=== PATIENT | male | born 1935 | race Caucasian/White ===

== ENCOUNTER 2017-05-18 08:52 | Inpatient (IN) | payer MEDICARE, MEDICAID ==
[~2017-05-18] VITALS: Ht 182.9 cm; Wt 83.0 kg
[2017-05-18] VITALS (41 sets, daily range): BP systolic 46–155; BP diastolic 31–90
[~2017-05-18 08:52] MED LIST: BICA50TA2 GT; CEROVITE GT; CHOL400T15 GT; DOCU-150 GT; HALO100A IM; HALO5TAB GT; LACT10SO6 PO; LEVOCARNITINE GT; LORA1TAB PO; MILK OF MAGNESIA GT; OMEP20CA10 GT; QUET100T GT; QUET25TA PO; RIVA10TA PO; RIVA20TA GT; SOTA80TA GT; TAMS-11 GT; VALPROIC ACID GT
[2017-05-18] MEDS ORDERED: SODIUM CHLORIDE 0.9% 1000ML BAG (SEPSIS BOLUS) IV ONE (09:15)
[2017-05-18] MEDS ORDERED: PIPERACILLIN/TAZ 3.375G PREMIX 50 ML IV ONE (09:30)
[2017-05-18] MEDS ORDERED: LEVOFLOXACIN 500MG PREMIX 100 ML IV ONE (09:30)
[2017-05-18] MEDS ORDERED: ACETAMINOPHEN 650MG SUPP PR ONE (09:30)
[2017-05-18 09:44] LABS: BG BASE EXCESS 6.2 mmol/L (-2.0-2.0); BG CARBOXYHEMOGLOBIN 0.7 % (0.5-1.5); BG DEOXYHEMOGLOBIN 1.7 % (0.0-5.0); BG FRACTION INSPIRED OXYGEN 36ER; BG HCO3 ACT 30.9 mmol/L (22.0-26.0); BG OXYGEN SATURATION 98.3 % (92.0-98.5); BG OXYHEMOGLOBIN 97.6 % (94.0-97.0); BG PCO2 45.2 mmHg (35.0-45.0); BG PH 7.453 (7.350-7.450); BG PO2 110.8 mmHg (75.0-100.0); BG SAMPLE SITE RIGHT RADIAL; BG TOTAL HEMOGLOBIN 11.8 g/dL (12.0-18.0); BG VENT MODE NASAL CANNULA
[2017-05-18 09:49] LABS: BASOPHILS % 0.6 % (0.0-2.0); EOSINOPHILS % 0.6 % (0.0-5.0); HEMATOCRIT. 32.8 % (42.0-52.0); HEMOGLOBIN. 10.6 g/dL (14.0-18.0); LYMPHOCYTES % 11.8 % (20.0-50.0); MEAN CORPUSCULAR HEMOGLOBIN 30.2 pg (28.0-32.0); MEAN PLATELET VOLUME 8.2 fl (7.4-10.4); MONOCYTES % 7.7 % (2.0-8.0); NEUTROPHILS % 79.3 % (40.0-76.0); PLATELET 210 x1000/uL (130-400); RED BLOOD CELL COUNT 3.53 mill/uL (4.7-6.1); RED CELL DISTRIBUTION WIDTH 18.3 % (11.6-14.6)
[2017-05-18 09:58] LABS: INR 1.1; PARTIAL THROMBOPLASTIN TIME 24.4 sec (23.4-31.0); PROTHROMBIN TIME 11.3 sec (9.4-11.6)
[2017-05-18 10:04] LABS: CARBON DIOXIDE 31 mEq/L (21-32); CHLORIDE 110 mEq/L (98-107); TROPONIN I 0.23 ng/mL (0.00-0.04)
[2017-05-18 10:19] LABS: CLARITY URINE CLOUDY (CLEAR); COLOR URINE YELLOW (YELLOW); GLUCOSE URINE NEGATIVE (NEGATIVE); KETONES URINE NEGATIVE (NEGATIVE); LEUKOCYTE ESTERASE URINE 1+ (NEGATIVE); NITRITE URINE NEGATIVE (NEGATIVE); OCCULT BLOOD URINE 2+ (NEGATIVE); PROTEIN URINE 2+ (NEGATIVE); SPECIFIC GRAVITY URINE 1.021 (1.005-1.030)
[2017-05-18] MEDS ORDERED: VANCOMYCIN 1 G PREMIX 200 ML IV SCH (12:15)
[2017-05-18] MEDS ORDERED: ONDANSETRON HCL 4MG/2ML VIAL IV PRN (12:15)
[2017-05-18] MEDS ORDERED: DEXT 5%/0.45% NACL 1000ML 1,000 ML IV SCH (12:15)
[2017-05-18] MEDS ORDERED: VANCOMYCIN 1,750 MG in DEXT 5% WATER 250 ML IV NR (13:30)
[2017-05-18] MEDS: SODIUM CHLORIDE 0.9% 1,000 ML IV SCH (15:23)
[2017-05-18] MEDS: PIPERACILLIN/TAZ 3.375G PREMIX 50 ML IV SCH (17:25)
[2017-05-18] MEDS: NOREPINEPHRINE 16 MG in DEXT 5% WATER 234 ML IV PRN (19:52)
[2017-05-18] MEDS: IPRATROPIUM/ALBUTEROL 0.5-3(2.5)MG/3ML NEB INH SCH (20:06)
[2017-05-18 20:18] LABS: BG CARBOXYHEMOGLOBIN 0.4 % (0.5-1.5); BG DEOXYHEMOGLOBIN 0.5 % (0.0-5.0); BG FRACTION INSPIRED OXYGEN 100; BG HCO3 ACT 25.8 mmol/L (22.0-26.0); BG METHEMOGLOBIN 0.4 % (0.0-1.5); BG OXYGEN SATURATION 99.5 % (92.0-98.5); BG OXYHEMOGLOBIN 98.7 % (94.0-97.0); BG PH 7.407 (7.350-7.450); BG PO2 304.5 mmHg (75.0-100.0); BG SAMPLE SITE RIGHT RADIAL; BG TIDAL VOLUME(mL) 650 mL; BG TOTAL HEMOGLOBIN 12.6 g/dL (12.0-18.0); BG VENT MODE VENT - A/C; BG VENT RATE 14 set
[2017-05-18] MEDS: DILTIAZEM HCL 125 MG in DEXT 5% WATER 100 ML IV PRN (21:06)
[2017-05-18] MEDS: PHENYLEPHRINE 40 MG in DEXT 5% WATER 246 ML IV PRN (21:07)
[2017-05-18] MEDS: ACETAMINOPHEN 325MG TABLET PO PRN (21:14)
[2017-05-18] MEDS ORDERED: DIGOXIN 500MCG/2ML AMP IV NR (23:14)
[2017-05-18] MEDS: ALBUMIN HUMAN 25GM/100ML (25%) IV NR (23:35)
[2017-05-19] VITALS (92 sets, daily range): BP systolic 57–145; BP diastolic 28–95
[2017-05-19] MEDS: IPRATROPIUM/ALBUTEROL 0.5-3(2.5)MG/3ML NEB INH SCH ×7 (00:24→23:43)
[2017-05-19 00:30] LABS: HEMATOCRIT 33.3 % (42.0-52.0); HEMOGLOBIN 10.6 g/dL (14.0-18.0)
[2017-05-19] MEDS: ALBUMIN HUMAN 25GM/100ML (25%) IV NR (00:47)
[2017-05-19] MEDS: PHENYLEPHRINE 40 MG in DEXT 5% WATER 246 ML IV PRN ×3 (00:47→06:48)
[2017-05-19] MEDS: PIPERACILLIN/TAZ 3.375G PREMIX 50 ML IV SCH ×3 (02:02→17:17)
[2017-05-19] MEDS: VANCOMYCIN 1 G PREMIX 200 ML IV SCH ×2 (02:03→15:18)
[2017-05-19] MEDS: DILTIAZEM HCL 125 MG in DEXT 5% WATER 100 ML IV PRN (03:03)
[2017-05-19] MEDS: ACETAMINOPHEN 325MG TABLET PO PRN ×2 (05:06→10:26)
[2017-05-19] MEDS: METHYLPREDNISOLONE SOD SUCC 40 MG/ML VIAL IV SCH ×2 (05:06→17:18)
[2017-05-19 05:16] LABS: HEMATOCRIT. 28.6 % (42.0-52.0); HEMOGLOBIN. 9.3 g/dL (14.0-18.0); MEAN CORPUSCULAR HEMOGLOBIN 30.4 pg (28.0-32.0); MEAN CORPUSCULAR VOLUME 93.6 fL (80.0-94.0); MEAN PLATELET VOLUME 8.6 fl (7.4-10.4); PLATELET 190 x1000/uL (130-400); RED BLOOD CELL COUNT 3.06 mill/uL (4.7-6.1)
[2017-05-19 05:39] LABS: CARBON DIOXIDE 23 mEq/L (21-32); CHLORIDE 114 mEq/L (98-107)
[2017-05-19 05:52] LABS: CREATINE KINASE 133 IU/L (39-308)
[2017-05-19 05:59] LABS: CREATINE KINASE MB FRACTION 2.1 ng/mL (0.5-3.6)
[2017-05-19] MEDS: NOREPINEPHRINE 16 MG in DEXT 5% WATER 234 ML IV PRN (06:48)
[2017-05-19 09:15] LABS: BG BASE EXCESS -1.8 mmol/L (-2.0-2.0); BG DEOXYHEMOGLOBIN 0.6 % (0.0-5.0); BG FRACTION INSPIRED OXYGEN 80; BG HCO3 ACT 21.5 mmol/L (22.0-26.0); BG METHEMOGLOBIN 0.3 % (0.0-1.5); BG OXYGEN SATURATION 99.4 % (92.0-98.5); BG OXYHEMOGLOBIN 99.1 % (94.0-97.0); BG PCO2 31.5 mmHg (35.0-45.0); BG PH 7.452 (7.350-7.450); BG PO2 224.5 mmHg (75.0-100.0); BG SAMPLE SITE RIGHT RADIAL; BG TIDAL VOLUME(mL) 650 mL; BG TOTAL HEMOGLOBIN 10.2 g/dL (12.0-18.0); BG VENT MODE VENT - A/C; BG VENT RATE 14 set
[2017-05-19] MEDS: SODIUM CHLORIDE 0.9% 1,000 ML IV SCH ×2 (09:50→21:50)
[2017-05-19 11:11] LABS: PLATELET ESTIMATE NORMAL
[2017-05-19] MEDS: PHENYLEPHRINE 80 MG in DEXT 5% WATER 492 ML IV PRN ×2 (11:11→17:24)
[2017-05-19] MEDS: ENOXAPARIN 100MG/ML SYR SUBCUT SCH ×2 (12:48→23:47)
[2017-05-19] MEDS ORDERED: LIDOCAINE HCL 1% 20ML VIAL (Pyxis) INJ ONE (14:38)
[2017-05-19] MEDS ORDERED: SODIUM BICARBONATE 4.2% 5 MEQ/10 ML DISP.SYRIN IV ONE (14:38)
[2017-05-19 20:44] LABS: CREATINE KINASE MB FRACTION 4.5 ng/mL (0.5-3.6)
[2017-05-19 20:50] LABS: TROPONIN I 0.5 ng/mL (0.00-0.04)
[2017-05-19] MEDS ORDERED: SUCCINYLCHOLINE CHLORIDE 200MG/10ML VIAL IV ONE (22:00)
[2017-05-19] MEDS ORDERED: ETOMIDATE 2MG/ML 10ML VIAL IV ONE (22:00)
[2017-05-20] VITALS (85 sets, daily range): BP systolic 92–148; BP diastolic 27–107
[2017-05-20] MEDS: IPRATROPIUM/ALBUTEROL 0.5-3(2.5)MG/3ML NEB INH SCH ×6 (01:57→20:12)
[2017-05-20] MEDS: PIPERACILLIN/TAZ 3.375G PREMIX 50 ML IV SCH ×3 (02:02→18:07)
[2017-05-20] MEDS: VANCOMYCIN 1 G PREMIX 200 ML IV SCH (02:02)
[2017-05-20] MEDS: PHENYLEPHRINE 80 MG in DEXT 5% WATER 492 ML IV PRN (03:13)
[2017-05-20 05:46] LABS: HEMATOCRIT. 28.1 % (42.0-52.0); HEMOGLOBIN. 9.2 g/dL (14.0-18.0); MEAN CORPUSCULAR HEMOGLOBIN 30.5 pg (28.0-32.0); MEAN CORPUSCULAR VOLUME 92.9 fL (80.0-94.0); MEAN PLATELET VOLUME 9.4 fl (7.4-10.4); PLATELET 178 x1000/uL (130-400); RED BLOOD CELL COUNT 3.02 mill/uL (4.7-6.1); RED CELL DISTRIBUTION WIDTH 18.2 % (11.6-14.6)
[2017-05-20] MEDS: METHYLPREDNISOLONE SOD SUCC 40 MG/ML VIAL IV SCH ×2 (06:27→18:07)
[2017-05-20 06:46] LABS: CARBON DIOXIDE 23 mEq/L (21-32); CHLORIDE 113 mEq/L (98-107)
[2017-05-20 07:43] LABS: PLATELET ESTIMATE NORMAL
[2017-05-20] MEDS: POTASSIUM CHLORIDE 20MEQ/PACKET NG SCH ×2 (09:40→13:48)
[2017-05-20] MEDS: ACETAMINOPHEN 325MG TABLET PO PRN (09:40)
[2017-05-20 09:49] LABS: BG BASE EXCESS -3.5 mmol/L (-2.0-2.0); BG CARBOXYHEMOGLOBIN 0.1 % (0.5-1.5); BG FRACTION INSPIRED OXYGEN 30; BG HCO3 ACT 20.3 mmol/L (22.0-26.0); BG METHEMOGLOBIN 0.1 % (0.0-1.5); BG OXYHEMOGLOBIN 95.8 % (94.0-97.0); BG PCO2 31.8 mmHg (35.0-45.0); BG PH 7.423 (7.350-7.450); BG SAMPLE SITE RIGHT RADIAL; BG TIDAL VOLUME(mL) 650 mL; BG TOTAL HEMOGLOBIN 9.2 g/dL (12.0-18.0); BG VENT MODE VENT - A/C; BG VENT RATE 14 set
[2017-05-20] MEDS: SODIUM CHLORIDE 0.9% 1,000 ML IV SCH ×2 (11:47→13:48)
[2017-05-20] MEDS: MIDODRINE HCL 5MG TABLET PO SCH ×2 (13:48→18:08)
[2017-05-20] MEDS: ENOXAPARIN 100MG/ML SYR SUBCUT SCH ×2 (13:49→23:13)
[2017-05-20] MEDS: FUROSEMIDE 40MG/4ML VIAL IVP SCH (14:50)
[2017-05-20] MEDS: VANCOMYCIN 750 MG PREMIX 150 ML IV SCH (16:02)
[2017-05-20 16:35] LABS: CHLORIDE 116 mEq/L (98-107)
[2017-05-20 16:42] LABS: CARBON DIOXIDE 22 mEq/L (21-32)
[2017-05-21] VITALS (77 sets, daily range): BP systolic 56–151; BP diastolic 28–105
[2017-05-21] MEDS: IPRATROPIUM/ALBUTEROL 0.5-3(2.5)MG/3ML NEB INH SCH ×6 (00:16→20:25)
[2017-05-21] MEDS: PIPERACILLIN/TAZ 3.375G PREMIX 50 ML IV SCH ×3 (01:49→17:29)
[2017-05-21] MEDS: VANCOMYCIN 750 MG PREMIX 150 ML IV SCH ×2 (02:33→15:40)
[2017-05-21] MEDS: SODIUM CHLORIDE 0.9% 1,000 ML IV SCH ×2 (03:19→12:13)
[2017-05-21] MEDS: METHYLPREDNISOLONE SOD SUCC 40 MG/ML VIAL IV SCH ×2 (05:51→17:29)
[2017-05-21 06:11] LABS: BASOPHILS % 0.2 % (0.0-2.0); EOSINOPHILS % 0.3 % (0.0-5.0); HEMATOCRIT. 25.9 % (42.0-52.0); HEMOGLOBIN. 8.6 g/dL (14.0-18.0); LYMPHOCYTES % 7.3 % (20.0-50.0); MEAN CORPUSCULAR HEMOGLOBIN 30.9 pg (28.0-32.0); MEAN CORPUSCULAR VOLUME 92.8 fL (80.0-94.0); MEAN PLATELET VOLUME 9.7 fl (7.4-10.4); MONOCYTES % 3.8 % (2.0-8.0); NEUTROPHILS % 88.4 % (40.0-76.0); PLATELET 161 x1000/uL (130-400); RED BLOOD CELL COUNT 2.79 mill/uL (4.7-6.1); RED CELL DISTRIBUTION WIDTH 18.4 % (11.6-14.6)
[2017-05-21 06:38] LABS: CARBON DIOXIDE 23 mEq/L (21-32); CHLORIDE 115 mEq/L (98-107)
[2017-05-21 07:10] LABS: BG BASE EXCESS -1.6 mmol/L (-2.0-2.0); BG CARBOXYHEMOGLOBIN 0.7 % (0.5-1.5); BG DEOXYHEMOGLOBIN 4.2 % (0.0-5.0); BG HCO3 ACT 21.8 mmol/L (22.0-26.0); BG METHEMOGLOBIN 0.3 % (0.0-1.5); BG OXYGEN SATURATION 95.8 % (92.0-98.5); BG OXYHEMOGLOBIN 94.8 % (94.0-97.0); BG PCO2 32.4 mmHg (35.0-45.0); BG PH 7.446 (7.350-7.450); BG PO2 78.2 mmHg (75.0-100.0); BG SAMPLE SITE RIGHT BRACHIAL; BG TIDAL VOLUME(mL) 650 mL; BG TOTAL HEMOGLOBIN 11.6 g/dL (12.0-18.0); BG VENT MODE VENT - A/C; BG VENT RATE 14 set
[2017-05-21] MEDS: POTASSIUM CHLORIDE 20MEQ/PACKET GT SCH ×2 (09:29→12:10)
[2017-05-21] MEDS: FUROSEMIDE 40MG/4ML VIAL IVP SCH (09:31)
[2017-05-21] MEDS: MIDODRINE HCL 5MG TABLET PO SCH ×3 (09:31→17:29)
[2017-05-21] MEDS: ACETAMINOPHEN 325MG TABLET PO PRN (09:32)
[2017-05-21] MEDS: ENOXAPARIN 100MG/ML SYR SUBCUT SCH (12:11)
[2017-05-21 15:40] LABS: BG BASE EXCESS -0.7 mmol/L (-2.0-2.0); BG CARBOXYHEMOGLOBIN 0.3 % (0.5-1.5); BG CPAP (cmH2O) 0 cm(H2O); BG DEOXYHEMOGLOBIN 2.2 % (0.0-5.0); BG HCO3 ACT 22.8 mmol/L (22.0-26.0); BG METHEMOGLOBIN 0.1 % (0.0-1.5); BG OXYGEN SATURATION 97.8 % (92.0-98.5); BG OXYHEMOGLOBIN 97.4 % (94.0-97.0); BG PCO2 33.4 mmHg (35.0-45.0); BG PH 7.452 (7.350-7.450); BG PO2 106.6 mmHg (75.0-100.0); BG SAMPLE SITE RIGHT BRACHIAL; BG TOTAL HEMOGLOBIN 10.1 g/dL (12.0-18.0); BG VENT MODE VENT - CPAP
[2017-05-22] VITALS (72 sets, daily range): BP systolic 100–149; BP diastolic 57–104
[2017-05-22] MEDS: IPRATROPIUM/ALBUTEROL 0.5-3(2.5)MG/3ML NEB INH SCH ×6 (00:29→20:01)
[2017-05-22] MEDS: ENOXAPARIN 100MG/ML SYR SUBCUT SCH ×3 (00:52→23:39)
[2017-05-22] MEDS: PIPERACILLIN/TAZ 3.375G PREMIX 50 ML IV SCH ×3 (02:56→17:01)
[2017-05-22] MEDS: VANCOMYCIN 750 MG PREMIX 150 ML IV SCH ×2 (03:58→14:56)
[2017-05-22] MEDS: METHYLPREDNISOLONE SOD SUCC 40 MG/ML VIAL IV SCH ×2 (05:44→17:01)
[2017-05-22 06:01] LABS: EOSINOPHILS % 0.2 % (0.0-5.0); HEMATOCRIT. 25.9 % (42.0-52.0); HEMOGLOBIN. 8.5 g/dL (14.0-18.0); LYMPHOCYTES % 8.1 % (20.0-50.0); MEAN CORPUSCULAR HEMOGLOBIN 30.4 pg (28.0-32.0); MEAN CORPUSCULAR VOLUME 92.4 fL (80.0-94.0); MEAN PLATELET VOLUME 9.2 fl (7.4-10.4); MONOCYTES % 5.1 % (2.0-8.0); NEUTROPHILS % 86.6 % (40.0-76.0); PLATELET 172 x1000/uL (130-400); RED CELL DISTRIBUTION WIDTH 18.1 % (11.6-14.6)
[2017-05-22 06:48] LABS: CARBON DIOXIDE 27 mEq/L (21-32); CHLORIDE 116 mEq/L (98-107)
[2017-05-22] MEDS: MIDODRINE HCL 5MG TABLET PO SCH ×3 (08:26→17:01)
[2017-05-22] MEDS: FUROSEMIDE 40MG/4ML VIAL IVP SCH (08:26)
[2017-05-22] MEDS: POTASSIUM CHLORIDE 20MEQ/PACKET GT SCH (08:27)
[2017-05-22 09:28] LABS: BG BASE EXCESS 4.5 mmol/L (-2.0-2.0); BG CARBOXYHEMOGLOBIN 0.3 % (0.5-1.5); BG DEOXYHEMOGLOBIN 2.8 % (0.0-5.0); BG FRACTION INSPIRED OXYGEN 30; BG HCO3 ACT 27.7 mmol/L (22.0-26.0); BG METHEMOGLOBIN 0.2 % (0.0-1.5); BG OXYGEN SATURATION 97.2 % (92.0-98.5); BG OXYHEMOGLOBIN 96.7 % (94.0-97.0); BG PCO2 35.9 mmHg (35.0-45.0); BG PH 7.505 (7.350-7.450); BG PO2 87.7 mmHg (75.0-100.0); BG PRESSURE SUPPORT 10; BG SAMPLE SITE RIGHT BRACHIAL; BG TOTAL HEMOGLOBIN 10.2 g/dL (12.0-18.0); BG VENT MODE VENT - CPAP
[2017-05-22] MEDS: SODIUM CHLORIDE 0.9% 1,000 ML IV SCH (15:00)
[2017-05-22] MEDS: ACETYLCYSTEINE 200MG/ML 20% VIAL 4ML INH SCH (20:00)
[2017-05-23] VITALS (59 sets, daily range): BP systolic 109–144; BP diastolic 57–84
[2017-05-23] MEDS: IPRATROPIUM/ALBUTEROL 0.5-3(2.5)MG/3ML NEB INH SCH ×6 (00:13→20:22)
[2017-05-23] MEDS: ACETYLCYSTEINE 200MG/ML 20% VIAL 4ML INH SCH ×6 (00:13→20:23)
[2017-05-23] MEDS: PIPERACILLIN/TAZ 3.375G PREMIX 50 ML IV SCH ×3 (02:43→17:30)
[2017-05-23] MEDS: METHYLPREDNISOLONE SOD SUCC 40 MG/ML VIAL IV SCH ×2 (05:21→17:30)
[2017-05-23] MEDS: VANCOMYCIN 750 MG PREMIX 150 ML IV SCH ×2 (05:21→23:24)
[2017-05-23] MEDS: FUROSEMIDE 40MG/4ML VIAL IVP SCH (08:48)
[2017-05-23] MEDS: MIDODRINE HCL 5MG TABLET PO SCH ×3 (09:00→17:31)
[2017-05-23] MEDS ORDERED: SODIUM BICARBONATE 4% (2.4MEQ) 5ML VIAL IV ONE (10:46)
[2017-05-23] MEDS ORDERED: LIDOCAINE HCL 1% 20ML VIAL (Pyxis) INJ ONE (10:46)
[2017-05-23] MEDS ORDERED: IOHEXOL-300 50 ML BOTTLE IV ONE (10:48)
[2017-05-23] MEDS ORDERED: IOHEXOL-300 100 ML BOTTLE ONE (10:48)
[2017-05-23] MEDS ORDERED: FENTANYL CITRATE/PF 50MCG/ML 2ML VIAL ONE (11:12)
[2017-05-23] MEDS ORDERED: DIPHENHYDRAMINE 50MG/ML VIAL ONE (11:13)
[2017-05-23] MEDS: POTASSIUM CHLORIDE 20MEQ/PACKET GT SCH (12:01)
[2017-05-23] MEDS: ENOXAPARIN 100MG/ML SYR SUBCUT SCH ×2 (12:02→23:33)
[2017-05-23 12:20] LABS: BASOPHILS % 0.2 % (0.0-2.0); HEMATOCRIT. 29.6 % (42.0-52.0); HEMOGLOBIN. 9.9 g/dL (14.0-18.0); LYMPHOCYTES % 8.6 % (20.0-50.0); MEAN CORPUSCULAR HEMOGLOBIN 30.6 pg (28.0-32.0); MEAN CORPUSCULAR VOLUME 91.2 fL (80.0-94.0); MEAN PLATELET VOLUME 8.5 fl (7.4-10.4); MONOCYTES % 5.3 % (2.0-8.0); NEUTROPHILS % 85.9 % (40.0-76.0); PLATELET 212 x1000/uL (130-400); RED BLOOD CELL COUNT 3.25 mill/uL (4.7-6.1); RED CELL DISTRIBUTION WIDTH 18.6 % (11.6-14.6)
[2017-05-23 12:32] LABS: CARBON DIOXIDE 29 mEq/L (21-32); CHLORIDE 114 mEq/L (98-107)
[2017-05-23] MEDS: SODIUM CHLORIDE 0.9% 1,000 ML IV SCH (14:57)
[2017-05-23] MEDS ORDERED: POTASSIUM CHLORIDE INJ 40 MEQ in DEXT 5% WATER 250 ML IV NR ×2 (15:00→18:00)
[2017-05-23 15:15] LABS: BG BASE EXCESS 3.6 mmol/L (-2.0-2.0); BG CARBOXYHEMOGLOBIN 0.3 % (0.5-1.5); BG CPAP (cmH2O) 0 cm(H2O); BG DEOXYHEMOGLOBIN 2.9 % (0.0-5.0); BG HCO3 ACT 26.8 mmol/L (22.0-26.0); BG METHEMOGLOBIN 0.4 % (0.0-1.5); BG OXYGEN SATURATION 97.1 % (92.0-98.5); BG OXYHEMOGLOBIN 96.4 % (94.0-97.0); BG PCO2 35.3 mmHg (35.0-45.0); BG PH 7.498 (7.350-7.450); BG PO2 89.3 mmHg (75.0-100.0); BG SAMPLE SITE RIGHT BRACHIAL; BG TOTAL HEMOGLOBIN 10.6 g/dL (12.0-18.0); BG VENT MODE VENT - CPAP
[2017-05-23] MEDS: SODIUM CHLORIDE 0.45% 1,000 ML IV SCH (20:16)
[2017-05-24] VITALS (46 sets, daily range): BP systolic 107–151; BP diastolic 52–84
[2017-05-24] MEDS: IPRATROPIUM/ALBUTEROL 0.5-3(2.5)MG/3ML NEB INH SCH ×7 (00:16→20:03)
[2017-05-24] MEDS: ACETYLCYSTEINE 200MG/ML 20% VIAL 4ML INH SCH ×6 (00:17→20:09)
[2017-05-24] MEDS: PIPERACILLIN/TAZ 3.375G PREMIX 50 ML IV SCH ×3 (01:29→17:40)
[2017-05-24] MEDS: METHYLPREDNISOLONE SOD SUCC 40 MG/ML VIAL IV SCH ×2 (05:15→16:53)
[2017-05-24 05:30] LABS: HEMATOCRIT. 27.8 % (42.0-52.0); HEMOGLOBIN. 9.2 g/dL (14.0-18.0); MEAN CORPUSCULAR HEMOGLOBIN 30.7 pg (28.0-32.0); MEAN CORPUSCULAR VOLUME 92.6 fL (80.0-94.0); MEAN PLATELET VOLUME 8.9 fl (7.4-10.4); PLATELET 214 x1000/uL (130-400); RED BLOOD CELL COUNT 3.01 mill/uL (4.7-6.1); RED CELL DISTRIBUTION WIDTH 18.4 % (11.6-14.6)
[2017-05-24 05:50] LABS: CARBON DIOXIDE 31 mEq/L (21-32); CHLORIDE 115 mEq/L (98-107)
[2017-05-24] MEDS: MIDODRINE HCL 5MG TABLET PO SCH ×3 (08:49→16:53)
[2017-05-24] MEDS: POTASSIUM CHLORIDE 20MEQ/PACKET GT SCH (08:49)
[2017-05-24 09:12] LABS: PLATELET ESTIMATE NORMAL
[2017-05-24] MEDS: ENOXAPARIN 100MG/ML SYR SUBCUT SCH (12:00)
[2017-05-24] MEDS ORDERED: LORAZEPAM 2MG/ML CPJ IV PRN (13:00)
[2017-05-24] MEDS ORDERED: ENOXAPARIN 80MG/0.8ML SYR SUBCUT SCH (14:43)
[2017-05-24 16:07] LABS: HEMATOCRIT 27.3 % (42.0-52.0)
[2017-05-24] MEDS: SODIUM CHLORIDE 0.45% 1,000 ML IV SCH (16:53)
[2017-05-24] MEDS: VANCOMYCIN 750 MG PREMIX 150 ML IV SCH (17:40)
[2017-05-25] VITALS (44 sets, daily range): BP systolic 100–141; BP diastolic 56–79
[2017-05-25] MEDS: ACETYLCYSTEINE 200MG/ML 20% VIAL 4ML INH SCH ×6 (00:19→20:56)
[2017-05-25] MEDS: IPRATROPIUM/ALBUTEROL 0.5-3(2.5)MG/3ML NEB INH SCH ×6 (00:19→20:56)
[2017-05-25] MEDS: PIPERACILLIN/TAZ 3.375G PREMIX 50 ML IV SCH ×3 (01:57→17:04)
[2017-05-25 04:58] LABS: HEMATOCRIT. 28.1 % (42.0-52.0); HEMOGLOBIN. 9.1 g/dL (14.0-18.0); MEAN CORPUSCULAR HEMOGLOBIN 30.5 pg (28.0-32.0); MEAN CORPUSCULAR VOLUME 93.9 fL (80.0-94.0); PLATELET 220 x1000/uL (130-400); RED BLOOD CELL COUNT 2.99 mill/uL (4.7-6.1); RED CELL DISTRIBUTION WIDTH 18.5 % (11.6-14.6)
[2017-05-25 05:11] LABS: CARBON DIOXIDE 28 mEq/L (21-32); CHLORIDE 111 mEq/L (98-107)
[2017-05-25] MEDS: METHYLPREDNISOLONE SOD SUCC 40 MG/ML VIAL IV SCH ×2 (05:29→17:05)
[2017-05-25] MEDS: POTASSIUM CHLORIDE 20MEQ/PACKET GT SCH (08:23)
[2017-05-25] MEDS: MIDODRINE HCL 5MG TABLET PO SCH ×3 (08:23→17:05)
[2017-05-25] MEDS: SODIUM CHLORIDE 0.45% 1,000 ML IV SCH (11:25)
[2017-05-25] MEDS: VANCOMYCIN 1250MG in DEXTROSE 5% WATER 250ML IV SCH (11:26)
[2017-05-25] MEDS: ENOXAPARIN 80MG/0.8ML SYR SUBCUT SCH ×2 (11:27)
[2017-05-25 12:15] LABS: PLATELET ESTIMATE NORMAL
[2017-05-25 14:31] LABS: BG BASE EXCESS 2.7 mmol/L (-2.0-2.0); BG CARBOXYHEMOGLOBIN 0.3 % (0.5-1.5); BG CPAP (cmH2O) 0 cm(H2O); BG DEOXYHEMOGLOBIN 3.6 % (0.0-5.0); BG HCO3 ACT 26.5 mmol/L (22.0-26.0); BG METHEMOGLOBIN 0.3 % (0.0-1.5); BG OXYGEN SATURATION 96.4 % (92.0-98.5); BG OXYHEMOGLOBIN 95.8 % (94.0-97.0); BG PCO2 37.9 mmHg (35.0-45.0); BG PH 7.463 (7.350-7.450); BG PO2 84.5 mmHg (75.0-100.0); BG SAMPLE SITE RIGHT RADIAL; BG TOTAL HEMOGLOBIN 10.2 g/dL (12.0-18.0); BG VENT MODE VENT - CPAP
[2017-05-25 17:09] LABS: BG BASE EXCESS 2.5 mmol/L (-2.0-2.0); BG CARBOXYHEMOGLOBIN 0.3 % (0.5-1.5); BG DEOXYHEMOGLOBIN 2.6 % (0.0-5.0); BG FRACTION INSPIRED OXYGEN 35; BG HCO3 ACT 26.4 mmol/L (22.0-26.0); BG METHEMOGLOBIN 0.1 % (0.0-1.5); BG OXYGEN SATURATION 97.4 % (92.0-98.5); BG PCO2 38.1 mmHg (35.0-45.0); BG PH 7.459 (7.350-7.450); BG PO2 95.7 mmHg (75.0-100.0); BG SAMPLE SITE RIGHT RADIAL; BG TOTAL HEMOGLOBIN 9.8 g/dL (12.0-18.0); BG VENT MODE MASK - AEROSOL
[2017-05-26] VITALS (32 sets, daily range): BP systolic 91–116; BP diastolic 46–72
[2017-05-26] MEDS: IPRATROPIUM/ALBUTEROL 0.5-3(2.5)MG/3ML NEB INH SCH ×6 (00:43→20:11)
[2017-05-26] MEDS: ACETYLCYSTEINE 200MG/ML 20% VIAL 4ML INH SCH ×6 (00:43→16:52)
[2017-05-26] MEDS: ENOXAPARIN 80MG/0.8ML SYR SUBCUT SCH ×2 (01:02→12:04)
[2017-05-26] MEDS: PIPERACILLIN/TAZ 3.375G PREMIX 50 ML IV SCH ×3 (01:02→17:01)
[2017-05-26] MEDS: METHYLPREDNISOLONE SOD SUCC 40 MG/ML VIAL IV SCH ×2 (05:29→17:01)
[2017-05-26] MEDS: SODIUM CHLORIDE 0.45% 1,000 ML IV SCH (08:02)
[2017-05-26] MEDS: POTASSIUM CHLORIDE 20MEQ/PACKET GT SCH (08:05)
[2017-05-26] MEDS: VANCOMYCIN 1250MG in DEXTROSE 5% WATER 250ML IV SCH (08:05)
[2017-05-26] MEDS: MIDODRINE HCL 5MG TABLET PO SCH ×3 (08:05→17:01)
[2017-05-27] VITALS (12 sets, daily range): BP systolic 82–115; BP diastolic 43–68
[2017-05-27] MEDS: IPRATROPIUM/ALBUTEROL 0.5-3(2.5)MG/3ML NEB INH SCH ×5 (00:12→21:31)
[2017-05-27] MEDS: ACETYLCYSTEINE 200MG/ML 20% VIAL 4ML INH SCH ×5 (00:46→21:31)
[2017-05-27] MEDS: ENOXAPARIN 80MG/0.8ML SYR SUBCUT SCH ×2 (01:02→13:08)
[2017-05-27] MEDS: PIPERACILLIN/TAZ 3.375G PREMIX 50 ML IV SCH ×3 (01:02→17:04)
[2017-05-27] MEDS: SODIUM CHLORIDE 0.45% 1,000 ML IV SCH ×2 (01:04→03:44)
[2017-05-27] MEDS: METHYLPREDNISOLONE SOD SUCC 40 MG/ML VIAL IV SCH ×2 (05:51→17:03)
[2017-05-27 07:15] LABS: CARBON DIOXIDE 27 mEq/L (21-32); CHLORIDE 107 mEq/L (98-107)
[2017-05-27 07:38] LABS: HEMATOCRIT. 26.7 % (42.0-52.0); HEMOGLOBIN. 8.6 g/dL (14.0-18.0); MEAN CORPUSCULAR HEMOGLOBIN 30.4 pg (28.0-32.0); MEAN CORPUSCULAR VOLUME 93.7 fL (80.0-94.0); MEAN PLATELET VOLUME 9.2 fl (7.4-10.4); PLATELET 242 x1000/uL (130-400); RED BLOOD CELL COUNT 2.85 mill/uL (4.7-6.1); RED CELL DISTRIBUTION WIDTH 18.7 % (11.6-14.6)
[2017-05-27] MEDS: VANCOMYCIN 1250MG in DEXTROSE 5% WATER 250ML IV SCH (08:39)
[2017-05-27] MEDS: POTASSIUM CHLORIDE 20MEQ/PACKET GT SCH (08:39)
[2017-05-27] MEDS: MIDODRINE HCL 5MG TABLET PO SCH ×3 (08:39→17:03)
[2017-05-27] MEDS ORDERED: MUPIROCIN 2% OINT 22GM NS SCH (15:00)
[2017-05-27 16:12] LABS: PLATELET ESTIMATE NORMAL
[2017-05-27] MEDS: MUPIROCIN 2% OINT 22GM NS SCH (17:04)
[2017-05-28] VITALS (10 sets, daily range): BP systolic 97–114; BP diastolic 50–74
[2017-05-28] MEDS: ENOXAPARIN 80MG/0.8ML SYR SUBCUT SCH ×2 (00:02→11:59)
[2017-05-28] MEDS: SODIUM CHLORIDE 0.45% 1,000 ML IV SCH (00:03)
[2017-05-28] MEDS: PIPERACILLIN/TAZ 3.375G PREMIX 50 ML IV SCH ×2 (02:13→09:27)
[2017-05-28] MEDS: METHYLPREDNISOLONE SOD SUCC 40 MG/ML VIAL IV SCH (05:07)
[2017-05-28] MEDS: MUPIROCIN 2% OINT 22GM NS SCH (05:08)
[2017-05-28] MEDS: IPRATROPIUM/ALBUTEROL 0.5-3(2.5)MG/3ML NEB INH SCH ×4 (05:56→16:49)
[2017-05-28 07:43] LABS: HEMATOCRIT. 28.6 % (42.0-52.0); HEMOGLOBIN. 9.3 g/dL (14.0-18.0); MEAN CORPUSCULAR HEMOGLOBIN 30.4 pg (28.0-32.0); MEAN CORPUSCULAR VOLUME 93.6 fL (80.0-94.0); MEAN PLATELET VOLUME 9.3 fl (7.4-10.4); PLATELET 260 x1000/uL (130-400); RED BLOOD CELL COUNT 3.05 mill/uL (4.7-6.1); RED CELL DISTRIBUTION WIDTH 19.2 % (11.6-14.6)
[2017-05-28] MEDS: VANCOMYCIN 1250MG in DEXTROSE 5% WATER 250ML IV SCH (08:08)
[2017-05-28] MEDS: POTASSIUM CHLORIDE 20MEQ/PACKET GT SCH (08:09)
[2017-05-28] MEDS: MIDODRINE HCL 5MG TABLET PO SCH ×3 (08:11→16:01)
[2017-05-28] MEDS: ACETYLCYSTEINE 200MG/ML 20% VIAL 4ML INH SCH (09:12)
[2017-05-28 17:39] LABS: PLATELET ESTIMATE NORMAL
== END 2017-05-28 17:20 | DRG 720 ==
LOC: ER 09:04 → EDBEDREQ 09:56 → ENRESERV 10:43 → 5EST 12:20 → MICUNO 19:00 → 3WST 05-26 14:40
PROVIDERS: ADMIT Internal Medicine; ATTEND Internal Medicine
PROC: 5A1955Z Respiratory Ventilation, Greater than 96 Consecutive Hours (ICD-10-PCS; principal; 2017-05-18)
PROC: 0BH17EZ Insertion of Endotracheal Airway into Trachea, Via Natural or Artificial Opening (ICD-10-PCS; 2017-05-18)
PROC: 05H533Z Insertion of Infusion Device into Right Subclavian Vein, Percutaneous Approach (ICD-10-PCS; 2017-05-19)
PROC: B546ZZA Ultrasonography of Right Subclavian Vein, Guidance (ICD-10-PCS; 2017-05-19)
PROC: 06H03DZ Insertion of Intraluminal Device into Inferior Vena Cava, Percutaneous Approach (ICD-10-PCS; 2017-05-19)
DX: A41.9 Sepsis, unspecified organism (principal); J96.90 Respiratory failure, unspecified, unspecified whether with hypoxia or hypercapnia; I21.4 Non-ST elevation (NSTEMI) myocardial infarction; R65.21 Severe sepsis with septic shock; J18.9 Pneumonia, unspecified organism; G93.40 Encephalopathy, unspecified; J44.0 Chronic obstructive pulmonary disease with (acute) lower respiratory infection; E87.0 Hyperosmolality and hypernatremia; I48.0 Paroxysmal atrial fibrillation; F03.90 Unspecified dementia, unspecified severity, without behavioral disturbance, psychotic disturbance, mood disturbance, and anxiety; E86.0 Dehydration; N39.0 Urinary tract infection, site not specified; E87.6 Hypokalemia; F20.9 Schizophrenia, unspecified; I10 Essential (primary) hypertension; I27.2 Other secondary pulmonary hypertension; Z86.73 Personal history of transient ischemic attack (TIA), and cerebral infarction without residual deficits; I95.89 Other hypotension; Z93.1 Gastrostomy status
CPT/HCPCS: 31500; 36415; 36569; 36600; 37191; 70450; 71010; 74000; 76937; 78580; 80048; 80053; 80202; 81001; 82375; 82550; 82553; 82805; 83605; 83690; 83735; 83880; 84439; 84443; 84484; 85014; 85018; 85025; 85049; 85379; 85610; 85730; 87040; 87070; 87077; 87086; 87186; 87205; 93005; 93306; 93970; 94002; 94003; 94640; 94664; 96361; 96365; 96367; 99291; A6261; C1725; C1769; C1880; J0330; J1160; J1200; J1644; J1650; J1940; J1956; J2060; J2370; J2543; J2920; J3010; J3370; J3480; J3490; J7030; J7040; J7050; J7060; J7608; J7620; P9047; Q9967; A4315

== ENCOUNTER 2017-05-31 22:52 | Inpatient (IN) | payer MEDICARE, MEDICAID ==
[~2017-05-31] VITALS: Ht 188 cm; Wt 84.9 kg
[2017-05-31] MEDS ORDERED: SODIUM CHLORIDE 0.9% 1,000 ML IV ONE ×2 (23:10)
[2017-05-31] MEDS ORDERED: PIPERACILLIN/TAZ 3.375G PREMIX 50 ML IV ONE (23:15)
[2017-05-31] MEDS ORDERED: SUCCINYLCHOLINE CHLORIDE 200MG/10ML VIAL IV ONE (23:15)
[2017-05-31] MEDS ORDERED: PROPOFOL 10MG/ML 100ML 100 ML IV ONE (23:15)
[2017-05-31] MEDS ORDERED: VANCOMYCIN 1 G PREMIX 200 ML IV ONE (23:15)
[2017-05-31] MEDS ORDERED: ETOMIDATE 2MG/ML 10ML VIAL IV ONE (23:15)
[2017-05-31] MEDS ORDERED: LORAZEPAM 2MG/ML CPJ IV ONE (23:30)
[2017-05-31] MEDS ORDERED: NOREPINEPHRINE 4 MG in DEXT 5% WATER 246 ML IV ONE (23:30)
[2017-05-31] MEDS ORDERED: NOREPINEPHRINE 4 MG in DEXTROSE 5% WATER 250 ML IV PRN (23:45)
[2017-06-01] VITALS (93 sets, daily range): BP systolic 71–141; BP diastolic 37–86
[2017-06-01 00:03] LABS: CARBON DIOXIDE 26 mEq/L (21-32); CHLORIDE 105 mEq/L (98-107); HEMATOCRIT. 30.1 % (42.0-52.0); HEMOGLOBIN. 9.7 g/dL (14.0-18.0); INR 1.1; MEAN CORPUSCULAR HEMOGLOBIN 30.5 pg (28.0-32.0); MEAN CORPUSCULAR VOLUME 94.3 fL (80.0-94.0); MEAN PLATELET VOLUME 8.9 fl (7.4-10.4); PLATELET 201 x1000/uL (130-400); RED BLOOD CELL COUNT 3.19 mill/uL (4.7-6.1); RED CELL DISTRIBUTION WIDTH 19.7 % (11.6-14.6); TROPONIN I 0.32 ng/mL (0.00-0.04)
[2017-06-01 00:35] LABS: BG CARBOXYHEMOGLOBIN 0.3 % (0.5-1.5); BG DEOXYHEMOGLOBIN 1.5 % (0.0-5.0); BG FRACTION INSPIRED OXYGEN 60; BG METHEMOGLOBIN 0.2 % (0.0-1.5); BG OXYGEN SATURATION 98.5 % (92.0-98.5); BG PCO2 32.2 mmHg (35.0-45.0); BG PH 7.411 (7.350-7.450); BG PO2 140.5 mmHg (75.0-100.0); BG SAMPLE SITE RIGHT RADIAL; BG TIDAL VOLUME(mL) 600 mL; BG TOTAL HEMOGLOBIN 9.1 g/dL (12.0-18.0); BG VENT MODE VENT - A/C; BG VENT RATE 16 set
[2017-06-01] MEDS ORDERED: GENTAMICIN 100MG PREMIX 100 ML IV ONE (01:15)
[2017-06-01 02:15] LABS: PLATELET ESTIMATE NORMAL
[2017-06-01] MEDS ORDERED: GENTAMICIN 100MG PREMIX 50 ML IV SCH (02:30)
[2017-06-01 02:32] LABS: CLARITY URINE CLEAR (CLEAR); COLOR URINE YELLOW (YELLOW); GLUCOSE URINE NEGATIVE (NEGATIVE); KETONES URINE NEGATIVE (NEGATIVE); LEUKOCYTE ESTERASE URINE 1+ (NEGATIVE); NITRITE URINE NEGATIVE (NEGATIVE); OCCULT BLOOD URINE NEGATIVE (NEGATIVE); PH URINE 6.5 (4.5-8.0); PROTEIN URINE 1+ (NEGATIVE); SPECIFIC GRAVITY URINE 1.022 (1.005-1.030); UROBILINOGEN URINE 0.2 E.U./dL (0.2-1.0)
[2017-06-01] MEDS ORDERED: SODIUM CHLORIDE 0.9% 1,000 ML IV SCH (03:15)
[2017-06-01] MEDS: NOREPINEPHRINE 4 MG in DEXT 5% WATER 246 ML IV PRN ×3 (06:34→18:24)
[2017-06-01] MEDS ORDERED: ONDANSETRON HCL 4MG/2ML VIAL IV PRN (08:30)
[2017-06-01] MEDS ORDERED: SUCCINYLCHOLINE CHLORIDE 200MG/10ML VIAL IV ONE (09:00)
[2017-06-01] MEDS ORDERED: ETOMIDATE 2MG/ML 10ML VIAL IV ONE (09:00)
[2017-06-01 09:14] LABS: BG CARBOXYHEMOGLOBIN 0.3 % (0.5-1.5); BG DEOXYHEMOGLOBIN 2.4 % (0.0-5.0); BG FRACTION INSPIRED OXYGEN 40; BG HCO3 ACT 23.3 mmol/L (22.0-26.0); BG METHEMOGLOBIN 0.2 % (0.0-1.5); BG OXYGEN SATURATION 97.6 % (92.0-98.5); BG OXYHEMOGLOBIN 97.1 % (94.0-97.0); BG PCO2 33.1 mmHg (35.0-45.0); BG PH 7.466 (7.350-7.450); BG PO2 95.5 mmHg (75.0-100.0); BG SAMPLE SITE RIGHT BRACHIAL; BG TIDAL VOLUME(mL) 600 mL; BG TOTAL HEMOGLOBIN 10.3 g/dL (12.0-18.0); BG VENT MODE VENT - A/C; BG VENT RATE 16 set
[2017-06-01] MEDS: PANTOPRAZOLE SODIUM 40 MG/VIAL IV SCH (09:24)
[2017-06-01] MEDS: ASPIRIN 81MG EC TABLET PO SCH (09:24)
[2017-06-01] MEDS: ENOXAPARIN 40MG/0.4ML SYR SUBCUT SCH (09:25)
[2017-06-01] MEDS: DEXT 5%/0.45% NACL 1000ML 1,000 ML IV SCH ×2 (09:26→18:49)
[2017-06-01 10:44] LABS: HEMOGLOBIN. 9.6 g/dL (14.0-18.0); MEAN CORPUSCULAR HEMOGLOBIN 30.3 pg (28.0-32.0); MEAN CORPUSCULAR VOLUME 94.3 fL (80.0-94.0); MEAN PLATELET VOLUME 8.8 fl (7.4-10.4); PLATELET 201 x1000/uL (130-400); RED BLOOD CELL COUNT 3.18 mill/uL (4.7-6.1); RED CELL DISTRIBUTION WIDTH 19.5 % (11.6-14.6)
[2017-06-01] MEDS: PIPERACILLIN/TAZ 3.375G PREMIX 50 ML IV SCH ×2 (11:00→18:49)
[2017-06-01 11:07] LABS: CARBON DIOXIDE 25 mEq/L (21-32); CHLORIDE 110 mEq/L (98-107); TROPONIN I 0.21 ng/mL (0.00-0.04)
[2017-06-01 11:33] LABS: PLATELET ESTIMATE NORMAL
[2017-06-01] MEDS ORDERED: VANCOMYCIN 1250MG in DEXTROSE 5% WATER 250ML IV SCH (12:00)
[2017-06-01] MEDS: IPRATROPIUM/ALBUTEROL 0.5-3(2.5)MG/3ML NEB INH SCH ×2 (12:48→20:15)
[2017-06-01] MEDS: PROPOFOL 10MG/ML 100ML 100 ML IV PRN (13:17)
[2017-06-01] MEDS: VANCOMYCIN 1250MG in DEXTROSE 5% WATER 250ML IV SCH (17:56)
[2017-06-02] VITALS (92 sets, daily range): BP systolic 77–132; BP diastolic 43–79
[2017-06-02] MEDS: IPRATROPIUM/ALBUTEROL 0.5-3(2.5)MG/3ML NEB INH SCH ×4 (01:53→20:06)
[2017-06-02] MEDS: PIPERACILLIN/TAZ 3.375G PREMIX 50 ML IV SCH ×4 (03:33→23:55)
[2017-06-02 04:57] LABS: HEMATOCRIT. 25.5 % (42.0-52.0); HEMOGLOBIN. 8.5 g/dL (14.0-18.0); MEAN CORPUSCULAR HEMOGLOBIN 30.9 pg (28.0-32.0); MEAN CORPUSCULAR VOLUME 92.5 fL (80.0-94.0); MEAN PLATELET VOLUME 9.1 fl (7.4-10.4); PLATELET 168 x1000/uL (130-400); RED BLOOD CELL COUNT 2.75 mill/uL (4.7-6.1); RED CELL DISTRIBUTION WIDTH 18.9 % (11.6-14.6)
[2017-06-02 05:15] LABS: CARBON DIOXIDE 23 mEq/L (21-32); CHLORIDE 105 mEq/L (98-107)
[2017-06-02] MEDS: DEXT 5%/0.45% NACL 1000ML 1,000 ML IV SCH ×2 (06:00→15:35)
[2017-06-02] MEDS: PROPOFOL 10MG/ML 100ML 100 ML IV PRN (06:04)
[2017-06-02] MEDS: NOREPINEPHRINE 4 MG in DEXT 5% WATER 246 ML IV PRN ×2 (06:13→18:40)
[2017-06-02] MEDS ORDERED: POTASSIUM CHLORIDE 20MEQ/PACKET GT NR (08:01)
[2017-06-02] MEDS: PANTOPRAZOLE SODIUM 40 MG/VIAL IV SCH (08:59)
[2017-06-02] MEDS: ASPIRIN 81MG EC TABLET PO SCH (09:00)
[2017-06-02] MEDS: ENOXAPARIN 40MG/0.4ML SYR SUBCUT SCH (09:00)
[2017-06-02 09:21] LABS: BG BASE EXCESS 0.5 mmol/L (-2.0-2.0); BG CARBOXYHEMOGLOBIN 0.3 % (0.5-1.5); BG DEOXYHEMOGLOBIN 3.2 % (0.0-5.0); BG FRACTION INSPIRED OXYGEN 40; BG HCO3 ACT 23.4 mmol/L (22.0-26.0); BG METHEMOGLOBIN 0.3 % (0.0-1.5); BG OXYGEN SATURATION 96.8 % (92.0-98.5); BG OXYHEMOGLOBIN 96.2 % (94.0-97.0); BG PCO2 31.4 mmHg (35.0-45.0); BG PH 7.491 (7.350-7.450); BG PO2 91.3 mmHg (75.0-100.0); BG SAMPLE SITE RIGHT RADIAL; BG TIDAL VOLUME(mL) 500 mL; BG TOTAL HEMOGLOBIN 9.3 g/dL (12.0-18.0); BG VENT MODE VENT - A/C; BG VENT RATE 16 set
[2017-06-02 10:13] LABS: PLATELET ESTIMATE NORMAL
[2017-06-02] MEDS ORDERED: PROPOFOL 10MG/ML 100ML 100 ML IV PRN (15:45)
[2017-06-02] MEDS: POTASSIUM CHLORIDE 10MEQ TABLET SR PO SCH (17:44)
[2017-06-02] MEDS: FUROSEMIDE 20MG/2ML VIAL IVP SCH (17:45)
[2017-06-02] MEDS: VANCOMYCIN 1250MG in DEXTROSE 5% WATER 250ML IV SCH (18:08)
[2017-06-03] VITALS (82 sets, daily range): BP systolic 78–122; BP diastolic 46–68
[2017-06-03] MEDS: IPRATROPIUM/ALBUTEROL 0.5-3(2.5)MG/3ML NEB INH SCH ×4 (02:00→20:59)
[2017-06-03] MEDS: PIPERACILLIN/TAZ 3.375G PREMIX 50 ML IV SCH ×4 (05:12→23:42)
[2017-06-03 05:40] LABS: HEMATOCRIT. 26.8 % (42.0-52.0); HEMOGLOBIN. 9.1 g/dL (14.0-18.0); MEAN CORPUSCULAR VOLUME 91.2 fL (80.0-94.0); MEAN PLATELET VOLUME 8.7 fl (7.4-10.4); PLATELET 171 x1000/uL (130-400); RED BLOOD CELL COUNT 2.94 mill/uL (4.7-6.1); RED CELL DISTRIBUTION WIDTH 18.2 % (11.6-14.6)
[2017-06-03 06:14] LABS: CARBON DIOXIDE 24 mEq/L (21-32); CHLORIDE 100 mEq/L (98-107)
[2017-06-03] MEDS ORDERED: ALBUMIN HUMAN 25GM/500ML (5%) IV SCH (09:00)
[2017-06-03] MEDS: ASPIRIN 81MG EC TABLET PO SCH (09:00)
[2017-06-03] MEDS: ENOXAPARIN 40MG/0.4ML SYR SUBCUT SCH (09:00)
[2017-06-03] MEDS: FUROSEMIDE 20MG/2ML VIAL IVP SCH (09:00)
[2017-06-03] MEDS: PANTOPRAZOLE SODIUM 40 MG/VIAL IV SCH (09:11)
[2017-06-03] MEDS: POTASSIUM CHLORIDE 10MEQ TABLET SR PO SCH (09:12)
[2017-06-03] MEDS: DEXT 5%/0.45% NACL 1000ML 1,000 ML IV SCH (09:16)
[2017-06-03 10:15] LABS: PLATELET ESTIMATE NORMAL
[2017-06-03] MEDS: VANCOMYCIN 1250MG in DEXTROSE 5% WATER 250ML IV SCH (17:32)
[2017-06-03] MEDS ORDERED: KCL 20MEQ/100ML PREMIX 100 ML IV NR (18:00)
[2017-06-03] MEDS: ACETAMINOPHEN 650MG/20.3ML UDC GT PRN (22:51)
[2017-06-03] MEDS: NOREPINEPHRINE 4 MG in DEXT 5% WATER 246 ML IV PRN (23:41)
[2017-06-04] VITALS (97 sets, daily range): BP systolic 72–132; BP diastolic 40–102
[2017-06-04] MEDS: IPRATROPIUM/ALBUTEROL 0.5-3(2.5)MG/3ML NEB INH SCH ×3 (03:40→20:21)
[2017-06-04] MEDS: PIPERACILLIN/TAZ 3.375G PREMIX 50 ML IV SCH ×4 (05:34→23:37)
[2017-06-04] MEDS: DEXT 5%/0.45% NACL 1000ML 1,000 ML IV SCH (05:35)
[2017-06-04 06:00] LABS: HEMATOCRIT. 27.7 % (42.0-52.0); HEMOGLOBIN. 9.4 g/dL (14.0-18.0); MEAN CORPUSCULAR HEMOGLOBIN 31.1 pg (28.0-32.0); MEAN CORPUSCULAR VOLUME 92.1 fL (80.0-94.0); MEAN PLATELET VOLUME 8.6 fl (7.4-10.4); RED CELL DISTRIBUTION WIDTH 17.9 % (11.6-14.6)
[2017-06-04 06:44] LABS: CARBON DIOXIDE 24 mEq/L (21-32); CHLORIDE 102 mEq/L (98-107)
[2017-06-04] MEDS: ACETAMINOPHEN 650MG/20.3ML UDC GT PRN ×3 (07:47→23:38)
[2017-06-04] MEDS: PANTOPRAZOLE SODIUM 40 MG/VIAL IV SCH (08:50)
[2017-06-04] MEDS: POTASSIUM CHLORIDE 10MEQ TABLET SR PO SCH (08:51)
[2017-06-04] MEDS: ENOXAPARIN 40MG/0.4ML SYR SUBCUT SCH ×2 (08:51→14:43)
[2017-06-04] MEDS: ASPIRIN 81MG EC TABLET PO SCH (08:51)
[2017-06-04] MEDS: NOREPINEPHRINE 4 MG in DEXT 5% WATER 246 ML IV PRN (09:48)
[2017-06-04] MEDS: VANCOMYCIN 1250MG in DEXTROSE 5% WATER 250ML IV SCH (11:26)
[2017-06-04] MEDS ORDERED: ENOXAPARIN 40MG/0.4ML SYR SUBCUT ONE (14:30)
[2017-06-04 14:33] LABS: PLATELET ESTIMATE NORMAL
[2017-06-04 14:36] LABS: PLATELET 162 x1000/uL (130-400)
[2017-06-04] MEDS: DEXT 5%/0.9% NACL 1,000 ML IV SCH (14:43)
[2017-06-04 14:48] LABS: BG BASE EXCESS 0.4 mmol/L (-2.0-2.0); BG CARBOXYHEMOGLOBIN 0.3 % (0.5-1.5); BG DEOXYHEMOGLOBIN 2.6 % (0.0-5.0); BG HCO3 ACT 24.2 mmol/L (22.0-26.0); BG METHEMOGLOBIN 0.3 % (0.0-1.5); BG OXYGEN SATURATION 97.4 % (92.0-98.5); BG OXYHEMOGLOBIN 96.8 % (94.0-97.0); BG PH 7.446 (7.350-7.450); BG SAMPLE SITE RIGHT BRACHIAL; BG TIDAL VOLUME(mL) 500 mL; BG TOTAL HEMOGLOBIN 10.3 g/dL (12.0-18.0); BG VENT MODE VENT - A/C; BG VENT RATE 16 set
[2017-06-04 15:29] LABS: INR 1.2; PARTIAL THROMBOPLASTIN TIME 33.6 sec (23.4-31.0); PROTHROMBIN TIME 12.6 sec (9.4-11.6)
[2017-06-04] MEDS ORDERED: ALBUTEROL (0.083%) 2.5MG/3ML NEB ONE (16:37)
[2017-06-05] VITALS (88 sets, daily range): BP systolic 83–146; BP diastolic 37–90
[2017-06-05] MEDS: NOREPINEPHRINE 4 MG in DEXT 5% WATER 246 ML IV PRN (05:12)
[2017-06-05] MEDS: VANCOMYCIN 1250MG in DEXTROSE 5% WATER 250ML IV SCH (05:13)
[2017-06-05] MEDS: ACETAMINOPHEN 650MG SUPP PR PRN ×2 (06:09→18:47)
[2017-06-05 06:13] LABS: CARBON DIOXIDE 23 mEq/L (21-32); CHLORIDE 103 mEq/L (98-107)
[2017-06-05 06:15] LABS: HEMATOCRIT 27.9 % (42.0-52.0); HEMOGLOBIN 9.3 g/dL (14.0-18.0); MEAN CORPUSCULAR HEMOGLOBIN 30.6 pg (28.0-32.0); MEAN CORPUSCULAR VOLUME 92.4 fL (80.0-94.0); PLATELET 175 x1000/uL (130-400); RED BLOOD CELL COUNT 3.02 mill/uL (4.7-6.1); RED CELL DISTRIBUTION WIDTH 18.1 % (11.6-14.6)
[2017-06-05] MEDS: PIPERACILLIN/TAZ 3.375G PREMIX 50 ML IV SCH ×3 (06:46→17:35)
[2017-06-05] MEDS ORDERED: ALBUMIN HUMAN 25GM/500ML (5%) IV NR (07:00)
[2017-06-05] MEDS: ENOXAPARIN 40MG/0.4ML SYR SUBCUT SCH (08:58)
[2017-06-05] MEDS: ASPIRIN 81MG EC TABLET PO SCH (08:58)
[2017-06-05] MEDS: POTASSIUM CHLORIDE 10MEQ TABLET SR PO SCH (08:58)
[2017-06-05] MEDS ORDERED: POTASSIUM CHLORIDE INJ 40 MEQ in DEXT 5% WATER 250 ML IV NR (09:00)
[2017-06-05] MEDS: PANTOPRAZOLE SODIUM 40 MG/VIAL IV SCH (09:07)
[2017-06-05] MEDS: IPRATROPIUM/ALBUTEROL 0.5-3(2.5)MG/3ML NEB INH SCH ×4 (09:22→21:00)
[2017-06-05] MEDS ORDERED: LIDOCAINE HCL 1%/EPI 1:200,000 30 ML VIAL ONE ×2 (10:40→11:16)
[2017-06-05] MEDS ORDERED: MIDAZOLAM HCL 2 MG/2 ML VIAL ONE (11:28)
[2017-06-05] MEDS ORDERED: FENTANYL CITRATE/PF 50MCG/ML 2ML VIAL ONE (11:28)
[2017-06-05] MEDS ORDERED: ROCURONIUM BROMIDE 10MG/ML VIAL 5ML IV ONE (12:29)
[2017-06-05] MEDS: DEXT 5%/0.9% NACL 1,000 ML IV SCH (12:58)
[2017-06-05] MEDS: LORAZEPAM 2MG/ML CPJ IV PRN (16:02)
[2017-06-05] MEDS: MORPHINE SULFATE 4 MG/ML CPJ (NOT FOR IM USE) IV PRN (17:07)
[2017-06-05] MEDS ORDERED: METOPROLOL TARTRATE 25MG TABLET NG NR (18:15)
[2017-06-05] MEDS ORDERED: METOPROLOL TARTRATE 25MG TABLET GT NR (18:30)
[2017-06-05] MEDS: METOPROLOL TARTRATE 25MG TABLET GT SCH (20:09)
[2017-06-05 22:32] LABS: BG CARBOXYHEMOGLOBIN 0.3 % (0.5-1.5); BG DEOXYHEMOGLOBIN 2.4 % (0.0-5.0); BG FRACTION INSPIRED OXYGEN 40; BG HCO3 ACT 20.4 mmol/L (22.0-26.0); BG METHEMOGLOBIN 0.3 % (0.0-1.5); BG OXYGEN SATURATION 97.6 % (92.0-98.5); BG PCO2 30.9 mmHg (35.0-45.0); BG PH 7.438 (7.350-7.450); BG PO2 100.7 mmHg (75.0-100.0); BG SAMPLE SITE RIGHT RADIAL; BG TIDAL VOLUME(mL) 500 mL; BG TOTAL HEMOGLOBIN 10.6 g/dL (12.0-18.0); BG VENT MODE VENT - A/C; BG VENT RATE 16 set
[2017-06-06] VITALS (95 sets, daily range): BP systolic 78–127; BP diastolic 47–75
[2017-06-06] MEDS: PIPERACILLIN/TAZ 3.375G PREMIX 50 ML IV SCH ×5 (00:23→23:29)
[2017-06-06] MEDS: VANCOMYCIN 1250MG in DEXTROSE 5% WATER 250ML IV SCH ×2 (01:00→18:30)
[2017-06-06] MEDS: IPRATROPIUM/ALBUTEROL 0.5-3(2.5)MG/3ML NEB INH SCH ×4 (01:15→20:35)
[2017-06-06] MEDS: MORPHINE SULFATE 4 MG/ML CPJ (NOT FOR IM USE) IV PRN ×2 (03:23→13:48)
[2017-06-06] MEDS: NOREPINEPHRINE 4 MG in DEXT 5% WATER 246 ML IV PRN ×2 (04:27→17:42)
[2017-06-06] MEDS: METOPROLOL TARTRATE 25MG TABLET GT SCH ×2 (09:00→20:24)
[2017-06-06] MEDS: DEXT 5%/0.9% NACL 1,000 ML IV SCH ×2 (09:29→16:15)
[2017-06-06] MEDS: PANTOPRAZOLE SODIUM 40 MG/VIAL IV SCH (09:32)
[2017-06-06] MEDS: POTASSIUM CHLORIDE 10MEQ TABLET SR PO SCH (09:32)
[2017-06-06] MEDS: ASPIRIN 81MG EC TABLET PO SCH (09:32)
[2017-06-06 09:40] LABS: CARBON DIOXIDE 22 mEq/L (21-32); CHLORIDE 104 mEq/L (98-107)
[2017-06-06 09:42] LABS: EOSINOPHILS % 0.5 % (0.0-5.0); HEMATOCRIT. 26.9 % (42.0-52.0); HEMOGLOBIN. 8.9 g/dL (14.0-18.0); MEAN CORPUSCULAR HEMOGLOBIN 30.3 pg (28.0-32.0); MEAN CORPUSCULAR VOLUME 91.4 fL (80.0-94.0); MEAN PLATELET VOLUME 7.5 fl (7.4-10.4); MONOCYTES % 7.2 % (2.0-8.0); NEUTROPHILS % 78.3 % (40.0-76.0); PLATELET 166 x1000/uL (130-400); RED BLOOD CELL COUNT 2.95 mill/uL (4.7-6.1); RED CELL DISTRIBUTION WIDTH 17.9 % (11.6-14.6)
[2017-06-06 10:10] LABS: BG BASE EXCESS -1.5 mmol/L (-2.0-2.0); BG CARBOXYHEMOGLOBIN 0.3 % (0.5-1.5); BG DEOXYHEMOGLOBIN 2.4 % (0.0-5.0); BG FRACTION INSPIRED OXYGEN 40; BG HCO3 ACT 21.6 mmol/L (22.0-26.0); BG METHEMOGLOBIN 0.1 % (0.0-1.5); BG OXYGEN SATURATION 97.6 % (92.0-98.5); BG OXYHEMOGLOBIN 97.2 % (94.0-97.0); BG PCO2 30.7 mmHg (35.0-45.0); BG PH 7.466 (7.350-7.450); BG PO2 100.5 mmHg (75.0-100.0); BG SAMPLE SITE RIGHT RADIAL; BG TIDAL VOLUME(mL) 500 mL; BG TOTAL HEMOGLOBIN 9.7 g/dL (12.0-18.0); BG VENT MODE VENT - A/C; BG VENT RATE 16 set
[2017-06-06] MEDS ORDERED: POTASSIUM CHLORIDE 20MEQ/PACKET PEG NR (13:48)
[2017-06-06] MEDS: LORAZEPAM 2MG/ML CPJ IV PRN (16:06)
[2017-06-06] MEDS: ENOXAPARIN 40MG/0.4ML SYR SUBCUT SCH (16:08)
[2017-06-06] MEDS ORDERED: DIGOXIN 500MCG/2ML AMP IV NR ×2 (18:00→20:00)
[2017-06-06] MEDS: ACETAMINOPHEN 650MG/20.3ML UDC GT PRN (18:07)
[2017-06-06] MEDS: POTASSIUM CHLORIDE 20MEQ/PACKET PEG SCH (18:10)
[2017-06-07] VITALS (97 sets, daily range): BP systolic 76–137; BP diastolic 38–79
[2017-06-07] MEDS: LORAZEPAM 2MG/ML CPJ IV PRN ×2 (00:46→13:32)
[2017-06-07] MEDS: NOREPINEPHRINE 4 MG in DEXT 5% WATER 246 ML IV PRN ×3 (00:46→20:11)
[2017-06-07] MEDS: IPRATROPIUM/ALBUTEROL 0.5-3(2.5)MG/3ML NEB INH SCH ×4 (01:30→21:36)
[2017-06-07] MEDS: ACETAMINOPHEN 650MG/20.3ML UDC GT PRN (03:03)
[2017-06-07] MEDS: DEXT 5%/0.9% NACL 1,000 ML IV SCH (05:23)
[2017-06-07] MEDS: PIPERACILLIN/TAZ 3.375G PREMIX 50 ML IV SCH ×2 (05:23→12:27)
[2017-06-07] MEDS: POTASSIUM CHLORIDE 20MEQ/PACKET PEG SCH ×2 (08:47→17:04)
[2017-06-07] MEDS: ASPIRIN 81MG EC TABLET PO SCH (08:47)
[2017-06-07] MEDS: PANTOPRAZOLE SODIUM 40 MG/VIAL IV SCH (08:47)
[2017-06-07] MEDS: METOPROLOL TARTRATE 25MG TABLET GT SCH ×2 (09:00→20:11)
[2017-06-07] MEDS: METOPROLOL TARTRATE 5MG/5ML VIAL IV PRN ×2 (12:25→15:08)
[2017-06-07] MEDS: VANCOMYCIN 1250MG in DEXTROSE 5% WATER 250ML IV SCH (12:27)
[2017-06-07 12:29] LABS: BASOPHILS % 0.9 % (0.0-2.0); HEMATOCRIT. 30.1 % (42.0-52.0); HEMOGLOBIN. 9.8 g/dL (14.0-18.0); LYMPHOCYTES % 13.8 % (20.0-50.0); MEAN CORPUSCULAR HEMOGLOBIN 30.1 pg (28.0-32.0); MEAN CORPUSCULAR VOLUME 92.4 fL (80.0-94.0); MEAN PLATELET VOLUME 7.7 fl (7.4-10.4); MONOCYTES % 7.7 % (2.0-8.0); NEUTROPHILS % 76.6 % (40.0-76.0); PLATELET 177 x1000/uL (130-400); RED BLOOD CELL COUNT 3.26 mill/uL (4.7-6.1); RED CELL DISTRIBUTION WIDTH 18.4 % (11.6-14.6)
[2017-06-07] MEDS ORDERED: METOPROLOL TARTRATE 5MG/5ML VIAL IV NR (12:30)
[2017-06-07] MEDS: MORPHINE SULFATE 4 MG/ML CPJ (NOT FOR IM USE) IV PRN ×3 (12:41→23:44)
[2017-06-07] MEDS: MIDODRINE HCL 5MG TABLET PO SCH ×2 (12:41→17:04)
[2017-06-07 12:59] LABS: CARBON DIOXIDE 20 mEq/L (21-32); CHLORIDE 103 mEq/L (98-107); PHOSPHORUS 1.5 mg/dL (2.5-4.9)
[2017-06-07] MEDS: MAGNESIUM OXIDE 400MG TABLET GT SCH (15:13)
[2017-06-07] MEDS ORDERED: MAGNESIUM 4 G PREMIX 100 ML IV NR (16:00)
[2017-06-07] MEDS ORDERED: MEROPENEM 1000MG in NORMAL SALINE 100ML IV SCH (16:00)
[2017-06-07] MEDS: ENOXAPARIN 40MG/0.4ML SYR SUBCUT SCH (17:04)
[2017-06-07] MEDS: ACETAMINOPHEN 650MG SUPP PR PRN (17:40)
[2017-06-07] MEDS ORDERED: SODIUM PHOS,M-BASIC-D-BASIC 30 MM in DEXT 5% WATER 500 ML IV NR (18:00)
[2017-06-07] MEDS: MEROPENEM 1000MG in NORMAL SALINE 100ML IV SCH (19:49)
[2017-06-07 19:55] LABS: BG BASE EXCESS -6.7 mmol/L (-2.0-2.0); BG CARBOXYHEMOGLOBIN 0.3 % (0.5-1.5); BG DEOXYHEMOGLOBIN 2.1 % (0.0-5.0); BG FRACTION INSPIRED OXYGEN 80; BG HCO3 ACT 18.4 mmol/L (22.0-26.0); BG METHEMOGLOBIN 0.4 % (0.0-1.5); BG OXYGEN SATURATION 97.9 % (92.0-98.5); BG OXYHEMOGLOBIN 97.2 % (94.0-97.0); BG PCO2 35.7 mmHg (35.0-45.0); BG PH 7.331 (7.350-7.450); BG PO2 105.7 mmHg (75.0-100.0); BG SAMPLE SITE RIGHT RADIAL; BG TIDAL VOLUME(mL) 500 mL; BG VENT MODE VENT - A/C; BG VENT RATE 16 set
[2017-06-07] MEDS: METOCLOPRAMIDE HCL 10MG/2ML VIAL IV SCH (22:26)
[2017-06-08] VITALS (94 sets, daily range): BP systolic 75–136; BP diastolic 34–98
[2017-06-08] MEDS: NOREPINEPHRINE 4 MG in DEXT 5% WATER 246 ML IV PRN (00:57)
[2017-06-08] MEDS: DEXT 5%/0.9% NACL 1,000 ML IV SCH ×2 (01:00→17:25)
[2017-06-08] MEDS: IPRATROPIUM/ALBUTEROL 0.5-3(2.5)MG/3ML NEB INH SCH ×3 (03:08→20:54)
[2017-06-08] MEDS ORDERED: NOREPINEPHRINE 8 MG in DEXT 5% WATER 242 ML IV PRN (03:45)
[2017-06-08] MEDS: MEROPENEM 1000MG in NORMAL SALINE 100ML IV SCH ×3 (03:52→20:00)
[2017-06-08] MEDS: ACETAMINOPHEN 650MG/20.3ML UDC GT PRN ×2 (05:11→16:20)
[2017-06-08] MEDS: METOCLOPRAMIDE HCL 10MG/2ML VIAL IV SCH ×3 (05:12→21:59)
[2017-06-08 05:41] LABS: BASOPHILS % 0.7 % (0.0-2.0); EOSINOPHILS % 0.5 % (0.0-5.0); HEMOGLOBIN. 9.5 g/dL (14.0-18.0); LYMPHOCYTES % 15.9 % (20.0-50.0); MEAN CORPUSCULAR HEMOGLOBIN 30.8 pg (28.0-32.0); MEAN CORPUSCULAR VOLUME 90.9 fL (80.0-94.0); MEAN PLATELET VOLUME 8.3 fl (7.4-10.4); MONOCYTES % 8.6 % (2.0-8.0); NEUTROPHILS % 74.3 % (40.0-76.0); PLATELET 165 x1000/uL (130-400); RED BLOOD CELL COUNT 3.07 mill/uL (4.7-6.1); RED CELL DISTRIBUTION WIDTH 18.4 % (11.6-14.6)
[2017-06-08 05:53] LABS: CHLORIDE 104 mEq/L (98-107)
[2017-06-08 06:13] LABS: CARBON DIOXIDE 20 mEq/L (21-32)
[2017-06-08] MEDS: POTASSIUM CHLORIDE 20MEQ/PACKET PEG SCH ×2 (08:49→17:25)
[2017-06-08] MEDS: ASPIRIN 81MG EC TABLET PO SCH (08:49)
[2017-06-08] MEDS: PANTOPRAZOLE SODIUM 40 MG/VIAL IV SCH (08:49)
[2017-06-08] MEDS: MAGNESIUM OXIDE 400MG TABLET GT SCH (08:50)
[2017-06-08] MEDS: MIDODRINE HCL 5MG TABLET PO SCH ×3 (08:50→16:49)
[2017-06-08 09:18] LABS: BG BASE EXCESS -6.5 mmol/L (-2.0-2.0); BG CARBOXYHEMOGLOBIN 0.3 % (0.5-1.5); BG DEOXYHEMOGLOBIN 1.2 % (0.0-5.0); BG FRACTION INSPIRED OXYGEN 50; BG HCO3 ACT 18.1 mmol/L (22.0-26.0); BG METHEMOGLOBIN 0.3 % (0.0-1.5); BG OXYGEN SATURATION 98.8 % (92.0-98.5); BG OXYHEMOGLOBIN 98.2 % (94.0-97.0); BG PCO2 32.4 mmHg (35.0-45.0); BG PH 7.364 (7.350-7.450); BG PO2 148.1 mmHg (75.0-100.0); BG SAMPLE SITE RIGHT RADIAL; BG TIDAL VOLUME(mL) 500 mL; BG TOTAL HEMOGLOBIN 9.3 g/dL (12.0-18.0); BG VENT MODE VENT - A/C; BG VENT RATE 16 set
[2017-06-08] MEDS: NOREPINEPHRINE 8 MG in DEXT 5% WATER 242 ML IV PRN ×2 (11:19→20:06)
[2017-06-08] MEDS: METOPROLOL TARTRATE 25MG TABLET GT SCH ×2 (13:01→21:59)
[2017-06-08] MEDS: MORPHINE SULFATE 4 MG/ML CPJ (NOT FOR IM USE) IV PRN (15:09)
[2017-06-08] MEDS: ENOXAPARIN 40MG/0.4ML SYR SUBCUT SCH (16:50)
[2017-06-08 17:08] LABS: BG BASE EXCESS -7.9 mmol/L (-2.0-2.0); BG CARBOXYHEMOGLOBIN 0.3 % (0.5-1.5); BG DEOXYHEMOGLOBIN 3.7 % (0.0-5.0); BG FRACTION INSPIRED OXYGEN 45; BG HCO3 ACT 15.4 mmol/L (22.0-26.0); BG METHEMOGLOBIN 0.1 % (0.0-1.5); BG OXYGEN SATURATION 96.3 % (92.0-98.5); BG OXYHEMOGLOBIN 95.9 % (94.0-97.0); BG PH 7.407 (7.350-7.450); BG PO2 85.4 mmHg (75.0-100.0); BG SAMPLE SITE RIGHT BRACHIAL; BG TIDAL VOLUME(mL) 500 mL; BG TOTAL HEMOGLOBIN 10.3 g/dL (12.0-18.0); BG VENT MODE VENT - A/C; BG VENT RATE 16 set
[2017-06-08] MEDS: AMIKACIN SULFATE 650 MG in SODIUM CHLORIDE 0.9% 100 ML IV SCH (18:35)
[2017-06-08 18:55] LABS: CLARITY URINE TURBID (CLEAR); COLOR URINE YELLOW (YELLOW); GLUCOSE URINE NEGATIVE (NEGATIVE); KETONES URINE NEGATIVE (NEGATIVE); LEUKOCYTE ESTERASE URINE 1+ (NEGATIVE); NITRITE URINE NEGATIVE (NEGATIVE); OCCULT BLOOD URINE 1+ (NEGATIVE); PH URINE 5.5 (4.5-8.0); PROTEIN URINE 2+ (NEGATIVE); SPECIFIC GRAVITY URINE 1.022 (1.005-1.030); UROBILINOGEN URINE 0.2 E.U./dL (0.2-1.0)
[2017-06-09] VITALS (86 sets, daily range): BP systolic 82–150; BP diastolic 38–75
[2017-06-09] MEDS: NOREPINEPHRINE 8 MG in DEXT 5% WATER 242 ML IV PRN ×2 (02:31→14:06)
[2017-06-09] MEDS: IPRATROPIUM/ALBUTEROL 0.5-3(2.5)MG/3ML NEB INH SCH ×4 (02:54→20:52)
[2017-06-09] MEDS: MEROPENEM 1000MG in NORMAL SALINE 100ML IV SCH ×3 (03:29→19:03)
[2017-06-09] MEDS: METOPROLOL TARTRATE 25MG TABLET GT SCH ×3 (05:04→22:26)
[2017-06-09] MEDS: METOCLOPRAMIDE HCL 10MG/2ML VIAL IV SCH ×3 (05:04→22:25)
[2017-06-09] MEDS: AMIKACIN SULFATE 650 MG in SODIUM CHLORIDE 0.9% 100 ML IV SCH ×2 (05:04→17:00)
[2017-06-09] MEDS: DEXT 5%/0.45% NACL 1000ML 1,000 ML IV SCH (07:45)
[2017-06-09] MEDS: PANTOPRAZOLE SODIUM 40 MG/VIAL IV SCH (08:28)
[2017-06-09] MEDS: MIDODRINE HCL 5MG TABLET PO SCH ×3 (08:28→16:58)
[2017-06-09] MEDS: ASPIRIN 81MG EC TABLET PO SCH (08:28)
[2017-06-09] MEDS: MAGNESIUM OXIDE 400MG TABLET GT SCH (08:28)
[2017-06-09] MEDS: POTASSIUM CHLORIDE 20MEQ/PACKET PEG SCH ×2 (08:28→16:57)
[2017-06-09 11:44] LABS: BASOPHILS % 0.7 % (0.0-2.0); EOSINOPHILS % 2.9 % (0.0-5.0); HEMATOCRIT. 23.6 % (42.0-52.0); HEMOGLOBIN. 7.8 g/dL (14.0-18.0); MEAN CORPUSCULAR VOLUME 90.3 fL (80.0-94.0); MEAN PLATELET VOLUME 8.4 fl (7.4-10.4); MONOCYTES % 10.3 % (2.0-8.0); NEUTROPHILS % 62.1 % (40.0-76.0); PLATELET 133 x1000/uL (130-400); RED BLOOD CELL COUNT 2.61 mill/uL (4.7-6.1); RED CELL DISTRIBUTION WIDTH 19.1 % (11.6-14.6)
[2017-06-09 11:57] LABS: CARBON DIOXIDE 18 mEq/L (21-32); CHLORIDE 111 mEq/L (98-107); PHOSPHORUS 1.3 mg/dL (2.5-4.9)
[2017-06-09] MEDS ORDERED: POTASSIUM PHOS,M-BASIC-D-BASIC 15 MMOL in DEXT 5% WATER 245 ML IV ONE (13:00)
[2017-06-09] MEDS ORDERED: SODIUM PHOS,M-BASIC-D-BASIC 15 MM in DEXTROSE 5% WATER 250 ML IV SCH (14:00)
[2017-06-09] MEDS: MORPHINE SULFATE 4 MG/ML CPJ (NOT FOR IM USE) IV PRN (18:21)
[2017-06-10] VITALS (101 sets, daily range): BP systolic 76–136; BP diastolic 6–84
[2017-06-10] MEDS: DEXT 5%/0.45% NACL 1000ML 1,000 ML IV SCH ×2 (02:01→10:37)
[2017-06-10] MEDS: IPRATROPIUM/ALBUTEROL 0.5-3(2.5)MG/3ML NEB INH SCH ×4 (02:02→20:13)
[2017-06-10] MEDS: MEROPENEM 1000MG in NORMAL SALINE 100ML IV SCH ×3 (04:55→21:24)
[2017-06-10 06:00] LABS: MEAN CORPUSCULAR HEMOGLOBIN 30.3 pg (28.0-32.0); MEAN PLATELET VOLUME 8.5 fl (7.4-10.4); PLATELET 150 x1000/uL (130-400); RED BLOOD CELL COUNT 2.64 mill/uL (4.7-6.1); RED CELL DISTRIBUTION WIDTH 19.3 % (11.6-14.6)
[2017-06-10 06:20] LABS: CARBON DIOXIDE 21 mEq/L (21-32); CHLORIDE 108 mEq/L (98-107); PHOSPHORUS 1.2 mg/dL (2.5-4.9)
[2017-06-10] MEDS: METOCLOPRAMIDE HCL 10MG/2ML VIAL IV SCH ×3 (06:49→21:52)
[2017-06-10] MEDS: AMIKACIN SULFATE 650 MG in SODIUM CHLORIDE 0.9% 100 ML IV SCH (06:50)
[2017-06-10] MEDS: METOPROLOL TARTRATE 25MG TABLET GT SCH ×3 (06:50→21:52)
[2017-06-10] MEDS: PANTOPRAZOLE SODIUM 40 MG/VIAL IV SCH (08:22)
[2017-06-10] MEDS: POTASSIUM CHLORIDE 20MEQ/PACKET PEG SCH ×2 (08:22→17:00)
[2017-06-10] MEDS: ASPIRIN 81MG EC TABLET PO SCH (08:23)
[2017-06-10] MEDS: MIDODRINE HCL 5MG TABLET PO SCH ×3 (08:23→17:00)
[2017-06-10] MEDS: MAGNESIUM OXIDE 400MG TABLET GT SCH (09:00)
[2017-06-10] MEDS ORDERED: SODIUM PHOS,M-BASIC-D-BASIC 30 MM in DEXT 5% WATER 500 ML IV NR (12:00)
[2017-06-10 16:49] LABS: PLATELET ESTIMATE NORMAL
[2017-06-10] MEDS: AMIKACIN SULFATE 500 MG in SODIUM CHLORIDE 0.9% 100 ML IV SCH (21:52)
[2017-06-11] VITALS (94 sets, daily range): BP systolic 74–148; BP diastolic 26–86
[2017-06-11] MEDS: IPRATROPIUM/ALBUTEROL 0.5-3(2.5)MG/3ML NEB INH SCH ×4 (02:36→20:21)
[2017-06-11] MEDS: METOPROLOL TARTRATE 25MG TABLET GT SCH ×3 (05:54→21:40)
[2017-06-11] MEDS: MEROPENEM 1000MG in NORMAL SALINE 100ML IV SCH ×3 (05:54→21:33)
[2017-06-11] MEDS: METOCLOPRAMIDE HCL 10MG/2ML VIAL IV SCH ×3 (05:55→21:44)
[2017-06-11] MEDS: NOREPINEPHRINE 8 MG in DEXT 5% WATER 242 ML IV PRN (06:00)
[2017-06-11] MEDS: AMIKACIN SULFATE 500 MG in SODIUM CHLORIDE 0.9% 100 ML IV SCH ×2 (08:39→22:18)
[2017-06-11] MEDS: POTASSIUM CHLORIDE 20MEQ/PACKET PEG SCH ×2 (09:00→17:43)
[2017-06-11] MEDS: ASPIRIN 81MG EC TABLET PO SCH (09:20)
[2017-06-11] MEDS: PANTOPRAZOLE SODIUM 40 MG/VIAL IV SCH (09:20)
[2017-06-11] MEDS: MIDODRINE HCL 5MG TABLET PO SCH ×3 (09:21→17:44)
[2017-06-11] MEDS: MAGNESIUM OXIDE 400MG TABLET GT SCH (09:21)
[2017-06-11] MEDS: DEXT 5%/0.45% NACL 1000ML 1,000 ML IV SCH ×2 (11:17→16:27)
[2017-06-11 11:44] LABS: HEMATOCRIT. 23.5 % (42.0-52.0); HEMOGLOBIN. 7.8 g/dL (14.0-18.0); MEAN CORPUSCULAR HEMOGLOBIN 30.1 pg (28.0-32.0); MEAN CORPUSCULAR VOLUME 90.3 fL (80.0-94.0); MEAN PLATELET VOLUME 8.2 fl (7.4-10.4); PLATELET 164 x1000/uL (130-400); RED CELL DISTRIBUTION WIDTH 18.8 % (11.6-14.6)
[2017-06-11 11:54] LABS: CHLORIDE 106 mEq/L (98-107)
[2017-06-11 11:59] LABS: CARBON DIOXIDE 23 mEq/L (21-32); PHOSPHORUS 2.2 mg/dL (2.5-4.9)
[2017-06-11 12:32] LABS: PLATELET ESTIMATE NORMAL
[2017-06-11 12:37] LABS: BG BASE EXCESS -3.1 mmol/L (-2.0-2.0); BG CARBOXYHEMOGLOBIN 0.3 % (0.5-1.5); BG DEOXYHEMOGLOBIN 1.8 % (0.0-5.0); BG FRACTION INSPIRED OXYGEN 40; BG HCO3 ACT 20.1 mmol/L (22.0-26.0); BG METHEMOGLOBIN 0.3 % (0.0-1.5); BG OXYGEN SATURATION 98.2 % (92.0-98.5); BG OXYHEMOGLOBIN 97.6 % (94.0-97.0); BG PCO2 29.1 mmHg (35.0-45.0); BG PH 7.458 (7.350-7.450); BG PO2 117.6 mmHg (75.0-100.0); BG SAMPLE SITE RIGHT RADIAL; BG TIDAL VOLUME(mL) 500 mL; BG TOTAL HEMOGLOBIN 8.2 g/dL (12.0-18.0); BG VENT MODE VENT - A/C; BG VENT RATE 16 set
[2017-06-11] MEDS: METRONIDAZOLE 250MG TABLET GT SCH ×2 (14:31→21:44)
[2017-06-11] MEDS ORDERED: POTASSIUM PHOS,M-BASIC-D-BASIC 20 MMOL in DEXT 5% WATER 243.3333 ML IV NR (15:00)
[2017-06-11] MEDS ORDERED: FLUDROCORTISONE ACETATE 0.1MG TABLET PO SCH (20:00)
[2017-06-12] VITALS (79 sets, daily range): BP systolic 76–111; BP diastolic 42–83
[2017-06-12] MEDS: IPRATROPIUM/ALBUTEROL 0.5-3(2.5)MG/3ML NEB INH SCH ×4 (02:07→21:01)
[2017-06-12] MEDS: METRONIDAZOLE 250MG TABLET GT SCH ×3 (05:31→22:40)
[2017-06-12] MEDS: MEROPENEM 1000MG in NORMAL SALINE 100ML IV SCH ×3 (05:31→20:50)
[2017-06-12] MEDS: METOCLOPRAMIDE HCL 10MG/2ML VIAL IV SCH ×3 (05:31→22:40)
[2017-06-12] MEDS: METOPROLOL TARTRATE 25MG TABLET GT SCH ×3 (05:46→22:41)
[2017-06-12 06:06] LABS: HEMATOCRIT 28.6 % (42.0-52.0); HEMOGLOBIN 9.5 g/dL (14.0-18.0)
[2017-06-12] MEDS: DEXT 5%/0.45% NACL 1000ML 1,000 ML IV SCH ×2 (07:44→20:53)
[2017-06-12] MEDS: PANTOPRAZOLE SODIUM 40 MG/VIAL IV SCH (08:29)
[2017-06-12] MEDS: NOREPINEPHRINE 8 MG in DEXT 5% WATER 242 ML IV PRN (08:29)
[2017-06-12] MEDS: AMIKACIN SULFATE 500 MG in SODIUM CHLORIDE 0.9% 100 ML IV SCH ×2 (08:32→20:50)
[2017-06-12] MEDS: MAGNESIUM OXIDE 400MG TABLET GT SCH (08:42)
[2017-06-12] MEDS: MIDODRINE HCL 5MG TABLET PO SCH ×3 (08:42→17:04)
[2017-06-12] MEDS: ASPIRIN 81MG EC TABLET PO SCH (08:43)
[2017-06-12] MEDS: POTASSIUM CHLORIDE 20MEQ/PACKET PEG SCH ×2 (08:44→17:04)
[2017-06-12] MEDS ORDERED: FLUDROCORTISONE ACETATE 0.1MG TABLET PO SCH (09:00)
[2017-06-12 09:12] LABS: HEMOGLOBIN. 8.8 g/dL (14.0-18.0); MEAN CORPUSCULAR HEMOGLOBIN 30.1 pg (28.0-32.0); MEAN PLATELET VOLUME 8.1 fl (7.4-10.4); PLATELET 191 x1000/uL (130-400); RED BLOOD CELL COUNT 2.92 mill/uL (4.7-6.1); RED CELL DISTRIBUTION WIDTH 18.2 % (11.6-14.6)
[2017-06-12 09:21] LABS: CARBON DIOXIDE 24 mEq/L (21-32); CHLORIDE 109 mEq/L (98-107); PHOSPHORUS 3.3 mg/dL (2.5-4.9)
[2017-06-12 11:12] LABS: PLATELET ESTIMATE NORMAL
[2017-06-12] MEDS ORDERED: POTASSIUM CHLORIDE INJ 40 MEQ in DEXT 5% WATER 250 ML IV SCH (12:00)
[2017-06-12] MEDS ORDERED: MAGNESIUM 1 G PREMIX 100 ML IV SCH (12:00)
[2017-06-13] VITALS (14 sets, daily range): BP systolic 83–123; BP diastolic 54–65
[2017-06-13] MEDS: DEXT 5%/0.45% NACL 1000ML 1,000 ML IV SCH ×3 (00:06→12:37)
[2017-06-13] MEDS: IPRATROPIUM/ALBUTEROL 0.5-3(2.5)MG/3ML NEB INH SCH ×4 (01:51→21:22)
[2017-06-13] MEDS: MEROPENEM 1000MG in NORMAL SALINE 100ML IV SCH ×3 (03:41→21:07)
[2017-06-13] MEDS: METOPROLOL TARTRATE 25MG TABLET GT SCH ×3 (06:06→21:08)
[2017-06-13] MEDS: METRONIDAZOLE 250MG TABLET GT SCH ×3 (06:06→21:07)
[2017-06-13] MEDS: METOCLOPRAMIDE HCL 10MG/2ML VIAL IV SCH ×3 (06:06→21:07)
[2017-06-13 10:20] LABS: HEMATOCRIT. 27.3 % (42.0-52.0); HEMOGLOBIN. 9.1 g/dL (14.0-18.0); MEAN CORPUSCULAR HEMOGLOBIN 30.1 pg (28.0-32.0); MEAN CORPUSCULAR VOLUME 90.3 fL (80.0-94.0); PLATELET 259 x1000/uL (130-400); RED BLOOD CELL COUNT 3.03 mill/uL (4.7-6.1); RED CELL DISTRIBUTION WIDTH 18.6 % (11.6-14.6)
[2017-06-13] MEDS: AMIKACIN SULFATE 500 MG in SODIUM CHLORIDE 0.9% 100 ML IV SCH (10:22)
[2017-06-13] MEDS: FLUDROCORTISONE ACETATE 0.1MG TABLET PO SCH (10:23)
[2017-06-13] MEDS: PANTOPRAZOLE SODIUM 40 MG/VIAL IV SCH (10:23)
[2017-06-13] MEDS: POTASSIUM CHLORIDE 20MEQ/PACKET PEG SCH ×2 (10:23→18:20)
[2017-06-13] MEDS: MAGNESIUM OXIDE 400MG TABLET GT SCH (10:23)
[2017-06-13] MEDS: ASPIRIN 81MG EC TABLET PO SCH (10:24)
[2017-06-13] MEDS: MIDODRINE HCL 5MG TABLET PO SCH ×3 (10:24→18:21)
[2017-06-13 10:34] LABS: CARBON DIOXIDE 23 mEq/L (21-32); CHLORIDE 109 mEq/L (98-107)
[2017-06-13 12:26] LABS: PLATELET ESTIMATE NORMAL
[2017-06-14] VITALS (14 sets, daily range): BP systolic 94–129; BP diastolic 19–77
[2017-06-14] MEDS: IPRATROPIUM/ALBUTEROL 0.5-3(2.5)MG/3ML NEB INH SCH ×4 (00:56→21:19)
[2017-06-14] MEDS: MEROPENEM 1000MG in NORMAL SALINE 100ML IV SCH ×3 (03:05→20:57)
[2017-06-14] MEDS: METRONIDAZOLE 250MG TABLET GT SCH ×3 (05:40→21:33)
[2017-06-14] MEDS: METOPROLOL TARTRATE 25MG TABLET GT SCH ×3 (05:41→21:36)
[2017-06-14] MEDS ORDERED: AMIKACIN 500MG in SODIUM CHLORIDE 0.9% 100ML IV SCH (06:00)
[2017-06-14] MEDS: METOCLOPRAMIDE HCL 10MG/2ML VIAL IV SCH ×2 (06:00→15:38)
[2017-06-14 09:33] LABS: HEMATOCRIT. 26.8 % (42.0-52.0); HEMOGLOBIN. 8.9 g/dL (14.0-18.0); MEAN CORPUSCULAR HEMOGLOBIN 30.3 pg (28.0-32.0); MEAN CORPUSCULAR VOLUME 91.2 fL (80.0-94.0); MEAN PLATELET VOLUME 7.8 fl (7.4-10.4); PLATELET 266 x1000/uL (130-400); RED BLOOD CELL COUNT 2.94 mill/uL (4.7-6.1); RED CELL DISTRIBUTION WIDTH 18.4 % (11.6-14.6)
[2017-06-14] MEDS: MAGNESIUM OXIDE 400MG TABLET GT SCH (09:45)
[2017-06-14] MEDS: ASPIRIN 81MG EC TABLET PO SCH (09:45)
[2017-06-14] MEDS: MIDODRINE HCL 5MG TABLET PO SCH ×3 (09:45→17:50)
[2017-06-14] MEDS: FLUDROCORTISONE ACETATE 0.1MG TABLET PO SCH (09:45)
[2017-06-14] MEDS: PANTOPRAZOLE SODIUM 40 MG/VIAL IV SCH (09:45)
[2017-06-14] MEDS: POTASSIUM CHLORIDE 20MEQ/PACKET PEG SCH ×2 (09:46→17:50)
[2017-06-14 09:52] LABS: CARBON DIOXIDE 24 mEq/L (21-32); CHLORIDE 107 mEq/L (98-107)
[2017-06-14 13:31] LABS: PLATELET ESTIMATE NORMAL
[2017-06-14] MEDS: DEXT 5%/0.45% NACL 1000ML 1,000 ML IV SCH (15:38)
[2017-06-14] MEDS: METOCLOPRAMIDE 10MG/10 ML UDC NG SCH (22:00)
[2017-06-15] VITALS (12 sets, daily range): BP systolic 95–116; BP diastolic 50–65
[2017-06-15] MEDS: IPRATROPIUM/ALBUTEROL 0.5-3(2.5)MG/3ML NEB INH SCH ×4 (02:30→20:28)
[2017-06-15] MEDS: AMIKACIN 500MG in SODIUM CHLORIDE 0.9% 100ML IV SCH ×2 (02:58→20:55)
[2017-06-15] MEDS ORDERED: MEROPENEM 1000MG in NORMAL SALINE 100ML IV SCH (04:00)
[2017-06-15] MEDS: METOCLOPRAMIDE 10MG/10 ML UDC NG SCH ×3 (06:02→21:03)
[2017-06-15] MEDS: METRONIDAZOLE 250MG TABLET GT SCH ×3 (06:02→21:03)
[2017-06-15] MEDS: DEXT 5%/0.45% NACL 1000ML 1,000 ML IV SCH ×2 (06:02→14:38)
[2017-06-15] MEDS: METOPROLOL TARTRATE 25MG TABLET GT SCH ×3 (06:03→21:04)
[2017-06-15] MEDS: MEROPENEM 1000MG in NORMAL SALINE 100ML IV SCH ×4 (08:36→21:02)
[2017-06-15] MEDS: ASPIRIN 81MG EC TABLET PO SCH (08:42)
[2017-06-15] MEDS: POTASSIUM CHLORIDE 20MEQ/PACKET PEG SCH ×2 (08:42→18:04)
[2017-06-15] MEDS: FLUDROCORTISONE ACETATE 0.1MG TABLET PO SCH (08:42)
[2017-06-15] MEDS: MAGNESIUM OXIDE 400MG TABLET GT SCH (08:42)
[2017-06-15] MEDS: MIDODRINE HCL 5MG TABLET PO SCH ×2 (08:42→12:51)
[2017-06-15] MEDS: PANTOPRAZOLE SODIUM 40 MG/VIAL IV SCH (08:44)
[2017-06-15] MEDS ORDERED: LOPERAMIDE HCL 2MG CAPSULE PO PRN ×2 (16:30→16:45)
[2017-06-15] MEDS ORDERED: FUROSEMIDE 40MG/4ML VIAL IVP NR (16:45)
[2017-06-16] VITALS (15 sets, daily range): BP systolic 74–135; BP diastolic 45–73
[2017-06-16] MEDS: IPRATROPIUM/ALBUTEROL 0.5-3(2.5)MG/3ML NEB INH SCH ×4 (03:16→21:24)
[2017-06-16] MEDS: METOPROLOL TARTRATE 25MG TABLET GT SCH ×3 (06:00→21:39)
[2017-06-16] MEDS: MEROPENEM 1000MG in NORMAL SALINE 100ML IV SCH ×3 (06:31→21:39)
[2017-06-16] MEDS: METRONIDAZOLE 250MG TABLET GT SCH ×3 (06:31→22:00)
[2017-06-16] MEDS: METOCLOPRAMIDE 10MG/10 ML UDC NG SCH ×3 (06:31→21:39)
[2017-06-16] MEDS: POTASSIUM CHLORIDE 20MEQ/PACKET PEG SCH ×2 (09:13→17:02)
[2017-06-16] MEDS: PANTOPRAZOLE SODIUM 40 MG/VIAL IV SCH (09:13)
[2017-06-16] MEDS: MAGNESIUM OXIDE 400MG TABLET GT SCH (09:13)
[2017-06-16] MEDS: ASPIRIN 81MG EC TABLET PO SCH (09:14)
[2017-06-16] MEDS: FLUDROCORTISONE ACETATE 0.1MG TABLET PO SCH (09:14)
[2017-06-16] MEDS: DEXT 5%/0.45% NACL 1000ML 1,000 ML IV SCH ×2 (09:15→19:15)
[2017-06-16] MEDS: AMIKACIN 500MG in SODIUM CHLORIDE 0.9% 100ML IV SCH (13:37)
[2017-06-17] VITALS (13 sets, daily range): BP systolic 93–141; BP diastolic 54–85
[2017-06-17] MEDS: IPRATROPIUM/ALBUTEROL 0.5-3(2.5)MG/3ML NEB INH SCH ×5 (03:56→23:16)
[2017-06-17] MEDS: METOCLOPRAMIDE 10MG/10 ML UDC NG SCH ×3 (05:29→21:01)
[2017-06-17] MEDS: METRONIDAZOLE 250MG TABLET GT SCH ×3 (05:29→21:01)
[2017-06-17] MEDS: MEROPENEM 1000MG in NORMAL SALINE 100ML IV SCH ×3 (05:29→21:02)
[2017-06-17] MEDS: METOPROLOL TARTRATE 25MG TABLET GT SCH ×3 (05:30→21:02)
[2017-06-17] MEDS: AMIKACIN 500MG in SODIUM CHLORIDE 0.9% 100ML IV SCH (07:59)
[2017-06-17] MEDS: FLUDROCORTISONE ACETATE 0.1MG TABLET PO SCH (08:31)
[2017-06-17] MEDS: MAGNESIUM OXIDE 400MG TABLET GT SCH (08:31)
[2017-06-17] MEDS: PANTOPRAZOLE SODIUM 40 MG/VIAL IV SCH (08:31)
[2017-06-17] MEDS: POTASSIUM CHLORIDE 20MEQ/PACKET PEG SCH ×2 (08:31→17:08)
[2017-06-17] MEDS: ASPIRIN 81MG EC TABLET PO SCH (08:31)
[2017-06-17] MEDS: ASCORBIC ACID 500 MG TABLET PO SCH ×2 (13:51→21:01)
[2017-06-17] MEDS: MULTIVITAMINS,THER W-MINERALS TABLET PO SCH (13:53)
[2017-06-17] MEDS: DEXT 5%/0.45% NACL 1000ML 1,000 ML IV SCH (21:03)
[2017-06-18] VITALS (12 sets, daily range): BP systolic 90–127; BP diastolic 50–90
[2017-06-18] MEDS: AMIKACIN 500MG in SODIUM CHLORIDE 0.9% 100ML IV SCH (01:16)
[2017-06-18] MEDS: DEXT 5%/0.45% NACL 1000ML 1,000 ML IV SCH (01:17)
[2017-06-18] MEDS: IPRATROPIUM/ALBUTEROL 0.5-3(2.5)MG/3ML NEB INH SCH ×4 (03:23→20:32)
[2017-06-18] MEDS: MEROPENEM 1000MG in NORMAL SALINE 100ML IV SCH ×2 (05:05→14:40)
[2017-06-18] MEDS: METOCLOPRAMIDE 10MG/10 ML UDC NG SCH ×3 (05:05→22:35)
[2017-06-18] MEDS: METRONIDAZOLE 250MG TABLET GT SCH (05:06)
[2017-06-18] MEDS: METOPROLOL TARTRATE 25MG TABLET GT SCH ×3 (05:06→22:00)
[2017-06-18 06:59] LABS: CARBON DIOXIDE 29 mEq/L (21-32); CHLORIDE 104 mEq/L (98-107)
[2017-06-18] MEDS: MAGNESIUM OXIDE 400MG TABLET GT SCH (09:43)
[2017-06-18] MEDS: ASPIRIN 81MG EC TABLET PO SCH (09:43)
[2017-06-18] MEDS: ASCORBIC ACID 500 MG TABLET PO SCH ×2 (09:43→17:30)
[2017-06-18] MEDS: MULTIVITAMINS,THER W-MINERALS TABLET PO SCH (09:43)
[2017-06-18] MEDS: POTASSIUM CHLORIDE 20MEQ/PACKET PEG SCH ×2 (09:43→17:30)
[2017-06-18] MEDS: PANTOPRAZOLE SODIUM 40 MG/VIAL IV SCH (09:43)
[2017-06-18] MEDS: FLUDROCORTISONE ACETATE 0.1MG TABLET PO SCH (09:45)
[2017-06-18 09:49] LABS: HEMATOCRIT. 27.9 % (42.0-52.0); MEAN CORPUSCULAR HEMOGLOBIN 29.5 pg (28.0-32.0); MEAN CORPUSCULAR VOLUME 91.3 fL (80.0-94.0); MEAN PLATELET VOLUME 7.8 fl (7.4-10.4); PLATELET 408 x1000/uL (130-400); RED BLOOD CELL COUNT 3.06 mill/uL (4.7-6.1); RED CELL DISTRIBUTION WIDTH 17.7 % (11.6-14.6)
[2017-06-18 10:43] LABS: CARBON DIOXIDE 28 mEq/L (21-32); CHLORIDE 105 mEq/L (98-107)
[2017-06-18 16:56] LABS: PLATELET ESTIMATE INCREASED
[2017-06-19] VITALS (12 sets, daily range): BP systolic 87–170; BP diastolic 52–87
[2017-06-19] MEDS: IPRATROPIUM/ALBUTEROL 0.5-3(2.5)MG/3ML NEB INH SCH ×4 (02:09→20:04)
[2017-06-19] MEDS: METOPROLOL TARTRATE 25MG TABLET GT SCH ×3 (05:27→21:24)
[2017-06-19] MEDS: METOCLOPRAMIDE 10MG/10 ML UDC NG SCH ×3 (05:27→21:24)
[2017-06-19] MEDS: ASCORBIC ACID 500 MG TABLET PO SCH ×2 (09:08→17:25)
[2017-06-19] MEDS: MULTIVITAMINS,THER W-MINERALS TABLET PO SCH (09:08)
[2017-06-19] MEDS: MAGNESIUM OXIDE 400MG TABLET GT SCH (09:08)
[2017-06-19] MEDS: POTASSIUM CHLORIDE 20MEQ/PACKET PEG SCH ×2 (09:08→17:25)
[2017-06-19] MEDS: FLUDROCORTISONE ACETATE 0.1MG TABLET PO SCH (09:08)
[2017-06-19] MEDS: ASPIRIN 81MG EC TABLET PO SCH (09:08)
[2017-06-19] MEDS: PANTOPRAZOLE SODIUM 40 MG/VIAL IV SCH (09:08)
[2017-06-20] VITALS (10 sets, daily range): BP systolic 86–155; BP diastolic 54–88
[2017-06-20] MEDS: IPRATROPIUM/ALBUTEROL 0.5-3(2.5)MG/3ML NEB INH SCH ×4 (01:37→20:40)
[2017-06-20] MEDS: METOPROLOL TARTRATE 25MG TABLET GT SCH ×3 (05:08→20:39)
[2017-06-20] MEDS: ACETAMINOPHEN 650MG/20.3ML UDC GT PRN ×2 (05:09→09:50)
[2017-06-20] MEDS: METOCLOPRAMIDE 10MG/10 ML UDC NG SCH ×3 (05:20→21:51)
[2017-06-20] MEDS: PANTOPRAZOLE SODIUM 40 MG/VIAL IV SCH (09:49)
[2017-06-20] MEDS: MULTIVITAMINS,THER W-MINERALS TABLET PO SCH (09:49)
[2017-06-20] MEDS: MAGNESIUM OXIDE 400MG TABLET GT SCH (09:49)
[2017-06-20] MEDS: FLUDROCORTISONE ACETATE 0.1MG TABLET PO SCH (09:49)
[2017-06-20] MEDS: POTASSIUM CHLORIDE 20MEQ/PACKET PEG SCH ×2 (09:49→16:31)
[2017-06-20] MEDS: ASPIRIN 81MG EC TABLET PO SCH (09:49)
[2017-06-20] MEDS: ASCORBIC ACID 500 MG TABLET PO SCH ×2 (09:49→16:31)
[2017-06-20] MEDS: LACTOBACILLUS GG CAPSULE PO SCH (14:01)
[2017-06-21] MEDS: ACETAMINOPHEN 650MG/20.3ML UDC GT PRN (00:44)
[2017-06-21] MEDS: IPRATROPIUM/ALBUTEROL 0.5-3(2.5)MG/3ML NEB INH SCH (01:31)
[2017-06-21 05:09] VITALS: BP 92/58
[2017-06-21 08:00] VITALS: BP 136/73
[2017-06-21] MEDS: METOPROLOL TARTRATE 25MG TABLET GT SCH (09:00)
[2017-06-21] MEDS: PANTOPRAZOLE SODIUM 40 MG/VIAL IV SCH (09:00)
[2017-06-21] MEDS: LACTOBACILLUS GG CAPSULE PO SCH (09:00)
[2017-06-21] MEDS: ASPIRIN 81MG EC TABLET PO SCH (09:00)
[2017-06-21] MEDS: MAGNESIUM OXIDE 400MG TABLET GT SCH (09:00)
[2017-06-21] MEDS: ASCORBIC ACID 500 MG TABLET PO SCH (09:00)
[2017-06-21] MEDS: POTASSIUM CHLORIDE 20MEQ/PACKET PEG SCH (09:00)
[2017-06-21] MEDS: MULTIVITAMINS,THER W-MINERALS TABLET PO SCH (09:00)
[2017-06-21] MEDS: FLUDROCORTISONE ACETATE 0.1MG TABLET PO SCH (09:00)
[2017-06-21 10:00] VITALS: BP 142/77
[2017-06-21 12:00] VITALS: BP 122/79
[2017-06-21 14:51] VITALS: BP 94/68
== END 2017-06-21 19:32 | DRG 5 ==
LOC: ER 22:52 → EDBEDREQSVC 06-01 00:14 → MICUNO 06-01 01:00 → EDBEDREQ 06-01 01:01 → 5EST 06-12 23:00
PROVIDERS: ADMIT Internal Medicine; ATTEND Internal Medicine
PROC: 0BH17EZ Insertion of Endotracheal Airway into Trachea, Via Natural or Artificial Opening (ICD-10-PCS; 2017-06-01)
PROC: 5A1955Z Respiratory Ventilation, Greater than 96 Consecutive Hours (ICD-10-PCS; 2017-06-01)
PROC: 30233N1 Transfusion of Nonautologous Red Blood Cells into Peripheral Vein, Percutaneous Approach (ICD-10-PCS; 2017-06-01)
PROC: 0B110F4 Bypass Trachea to Cutaneous with Tracheostomy Device, Open Approach (ICD-10-PCS; principal; 2017-06-05 11:00)
DX: A41.51 Sepsis due to Escherichia coli [E. coli] (principal); J69.0 Pneumonitis due to inhalation of food and vomit; R65.21 Severe sepsis with septic shock; G93.40 Encephalopathy, unspecified; K56.7 Ileus, unspecified; D72.1 Eosinophilia; E88.09 Other disorders of plasma-protein metabolism, not elsewhere classified; G20 Parkinson's disease; E83.42 Hypomagnesemia; J44.9 Chronic obstructive pulmonary disease, unspecified; D64.9 Anemia, unspecified; E11.9 Type 2 diabetes mellitus without complications; E03.9 Hypothyroidism, unspecified; E87.6 Hypokalemia; F03.90 Unspecified dementia, unspecified severity, without behavioral disturbance, psychotic disturbance, mood disturbance, and anxiety; F20.9 Schizophrenia, unspecified; I11.9 Hypertensive heart disease without heart failure; N40.0 Benign prostatic hyperplasia without lower urinary tract symptoms; R13.10 Dysphagia, unspecified; F09 Unspecified mental disorder due to known physiological condition; Z16.12 Extended spectrum beta lactamase (ESBL) resistance; Y95 Nosocomial condition; J96.10 Chronic respiratory failure, unspecified whether with hypoxia or hypercapnia; Z22.322 Carrier or suspected carrier of Methicillin resistant Staphylococcus aureus; Z86.718 Personal history of other venous thrombosis and embolism; Z86.73 Personal history of transient ischemic attack (TIA), and cerebral infarction without residual deficits; Z87.891 Personal history of nicotine dependence; Z87.01 Personal history of pneumonia (recurrent); Z93.1 Gastrostomy status; Z99.11 Dependence on respirator [ventilator] status; Z79.899 Other long term (current) drug therapy
CPT/HCPCS: 31500; 36415; 36600; 51702; 70450; 71010; 74000; 80048; 80053; 80150; 80202; 81001; 82088; 82375; 82805; 82962; 83605; 83735; 83880; 84100; 84443; 84478; 84484; 85014; 85018; 85025; 85027; 85610; 85730; 86850; 86900; 86920; 87040; 87070; 87077; 87086; 87106; 87186; 87493; 93005; 94002; 94003; 94640; 96361; 96365; 96367; 96375; 99291; A6261; C9113; J0278; J0330; J1160; J1580; J1650; J1940; J2060; J2185; J2250; J2270; J2543; J2704; J2765; J3010; J3370; J3475; J3480; J3490; J7030; J7042; J7050; J7060; J7611; J7620; J8597; P9016; P9041